=== PATIENT | male | born 1940 | race Caucasian/White ===

== ENCOUNTER 2017-04-08 22:50 | Outpatient (CLI) | payer MEDICARE, OTHER ==
--- NOTE | ~2017-04-08 | HEMODYNAMI ---
PATIENT:NABILA HENDERSON MEDICAL RECORD: [id number] : 36 [id number] ADMISSION DATE: 04/09/17 Generatedon:04/09/201710:21 Patient name: NABILA HENDERSON Patient #: [id number] : 1940 Date of study: 04/09/2017 Page: Of Hemodynamic Procedure Report Patient Data Patient Demographics Procedure consent was obtained First Name: NABILA Gender: Male Last Name: BEATRIZ : 1940 Patient #: [id number] Age: 76 year(s) Race: SSN: [id number] Additional ID: [id number] Contact details Address: [address] State: [place] City: [place] Zip code: [address] Admission Admission Data Admission Date: 04/09/2017 Admission Time: 1:54 Arrival Date: 04/09/2017 Arrival Time: 1:54 Admit Source: Other Insurance Payor: Medicare Room #: D.2109 Lab Results Lab Result Date: 04/09/2017 Lab Result Time: 0:00 Biochemistry Name Units Result Min Max BUN mg/dl 15 --(--*-)-- 7 18 Creatinine mg/dl 0.9 --(-*--)-- 0.6 1.3 CBC Name Units Result Min Max Hemoglobin g/dl 14.5 --(*---)-- 13.5 17.5 Procedure Procedure Types Cath Procedure Diagnostic Procedure LHC [facility] w/Coronaries PCI Procedure Coronary Stent Initial Miscellaneous Procedures Moderate Sedation up to 15 minutes Procedure Description Procedure Date Procedure Date: 04/09/2017 Procedure Start Time: 10:03 Procedure End Time: 10:18 Procedure Staff Name Function Isaac Suarez MD Performing Physician Cami Gallego RT Scrub Rowena Poe RN Nurse Hanane Cano RT Monitor Procedure Data Cath Procedure Fluoroscopy Diagnostic fluoroscopy Total fluoroscopy Time: 3.4 time: 3.4 min min Diagnostic fluoroscopy Total fluoroscopy dose: 712 dose: 712 mGy mGy Contrast Material Contrast Material Type Amount (ml) Isovue 300 80 Entry Location Entry Primary Successful Side Size Upsize Upsize Entry Closure Soria ccessful Closure Location (Fr) 1 (Fr) 2 (Fr) Remarks Device Remarks Radial Right 6 Fr Mechanical TR artery Short Compression Estimated blood loss: 10 ml Diagnostic catheters Device Type Used For End Catheter Placement Diagnostic Terumo 5Fr Procedure [place] 110cm catheter Procedure Complications No complications Procedure Medications Medication Administration Route Dosage Oxygen NC 2 l/min Lidocaine 2% added to field 20 Heparin Flush Bag added to field 2 bags (1000units/500ml NS) 0.9% NaCl I.V. 100 ml/hr Versed I.V. 1 mg Fentanyl I.V. 50 mcg Radial Cocktail I.A. 1 syringe (Verapomil 2mg/Nitro 400mcg/Heparin 1500units) Versed I.V. 1 mg Fentanyl I.V. 50 mcg Heparin Bolus I.V. 4000 units Integrilin (Bolus I.V. 7.3 ml 2mg/ml) Hemodynamics Rest HGB: 14.5 (g/dl) Heart Rate: 52 (bpm) Pressure Samples Time Site Value (mmHg) Purpose Heart Use Rate(bpm) 10:05 LV 9/9,9 Snapshot 58 Snapshots Pre Cath Intra NCS Post Cath Vital Signs Time Heart Resp SPO2 NIBP (mmHg) Rhythm Pain Sedation Rate (ipm) (%) Status Level (bpm) 9:49:07 50 16 98 163/81(140) NSR 0 (11) 10(A) , No pain 9:53:33 51 17 98 162/85(140) NSR 0 (11) 10(A) , No pain 9:57:59 49 17 95 145/83(124) NSR 0 (11) 10(A) , No pain 10:02:19 49 16 97 143/81(118) NSR 0 (11) 10(A) , No pain 10:06:41 57 15 96 111/65(90) NSR 0 (11) 9(A) , No pain 10:10:51 57 16 93 125/70(102) NSR 0 (11) 9(A) , No pain 10:15:09 53 16 96 120/60(95) NSR 0 (11) 10(A) , No pain 10:20:17 53 9 95 126/64(95) NSR 0 (11) 10(A) , No pain Medications Time Medication Route Dose Verified Delivered Reason Note s Effectiveness by by 9:49:24 Oxygen NC 2 l/min Isaac Guaman used for Erick Poe RN procedure 9:49:30 Lidocaine 2% added 20ml Isaac Gray for local to vial Erick Suarez MD anesthetic field 9:49:38 Heparin Flush added 2 bags Isaac Gray used for Bag to Erick Suarez MD procedure (1000units/500ml field NS) 9:49:48 0.9% NaCl I.V. 100 Isaac Guaman Per physician ml/hr Erick Poe RN 10:02:03 Versed I.V. 1 mg Isaac Guaman for sedation Erick Poe RN 10:02:09 Fentanyl I.V. 50 mcg Isaac Guaman for sedation Erick Poe RN 10:04:39 Radial Cocktail I.A. 1 Isaac Gray for (Verapomil syringe Erick Suarez MD vasodilation 2mg/Nitro 400mcg/Heparin 1500units) 10:04:47 Versed I.V. 1 mg Isaac Guaman for sedation Erick Poe RN 10:04:52 Fentanyl I.V. 50 mcg Isaac Guaman for sedation Erick Poe RN 10:09:02 Heparin Bolus I.V. 4000 Isaac Guaman for veri fied units Erick Poe RN anticoagulation with dr suarez 10:10:16 Integrilin I.V. 7.3 ml Isaac Guaman for wast ed (Bolus 2mg/ml) Erick Poe RN antiplatelet 2.7 ml therapy of vial Procedure Log Time Note 9:29:49 Informed consent obtained and on chart 9:29:57 Diagnostic Cath Status : Elective 9:31:05 Rowena Poe RN sent for patient. Start room use. 9:31:05 Time tracking: Regular hours 9:31:11 Plan of Care:Hemodynamics will remain stable., Cardiac rhythm will remain stable., Comfort level will be maintained., Respiratory function will remain adequate., Patient/ family verbilizes understanding of procedure., Procedure tolerated without complication., Recovers from procedure without complications.. 9:32:23 Admit Source: Other 9:32:27 Arrival Date: 04/09/2017 1:54:00 AM 9:32:42 Insurance Payor : Medicare 9:33:19 Lab Result : Hemoglobin 14.5 g/dl 9:33:19 Lab Result : Creatinine 0.9 mg/dl 9:33:19 Lab Result : BUN 15 mg/dl 9:42:01 Patient received from Med II to CCL 2 Alert and oriented. Tansferred to table in Supine position. 9:42:02 Warm blankets applied, and tracee hugger turned on for patient comfort. 9:42:02 Correct patient and procedure confirmed by team. 9:42:03 ECG and BP/O2 sat monitors applied to patient. 9:47:46 Vital chart was started 9:47:47 Baseline sample Acquired. 9:47:52 Full Disclosure recording started 9:47:55 H&P Date Dictated: 04/09/2017 New H&P dictated by physician.. 9:47:57 Pre-procedure instructions explained to patient. 9:47:57 Pre-op teaching completed and patient verbalized understanding. 9:47:58 Family in waiting room. 9:47:59 Patient NPO since Midnight. 9:48:02 Is the patient allergic to Iodine/contrast media? No. 9:48:03 Was the patient premedicated? No 9:48:04 Is patient on blood thinner?Yes 9:48:07 ACC The patient was administered the following blood thiners within the last 24 hours: ACCPlavix 9:48:08 Patient diabetic? No. 9:48:11 Previous problem with sedation/anesthesia? No ? 9:48:12 Snore? Yes 9:48:13 Sleep apnea? Yes 9:48:14 Deviated septum? No 9:48:15 Opens mouth fully? Yes 9:48:15 Sticks out tongue? 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 No ? 9:48:26 Pre procedure: right dorsailis pedis pulse 1+ Palpable, but thready & weak; easily obliterated 9:48:28 Pre procedure: left dorsailis pedis pulse 1+ Palpable, but thready & weak; easily obliterated 9:48:30 Patient pain scale 0/10 ?. 9:48:35 IV patent on arrival in left forearm with 0.9% NaCl at KVO. 9:48:38 Lab results completed and on chart. 9:48:44 Right Radial & Right Groin area was prepped with chlora-prep and draped in sterile fashion 9:48:45 Alarms reviewed by R. N. 9:48:45 Sharps counted by scrub and verified by R.N. 9:49:24 Oxygen 2 l/min NC was administered by Rowena Poe RN; used for procedure; 9:49:30 Lidocaine 2% 20ml vial added to field was administered by Isaac Suarez MD; for local anesthetic; 9:49:38 Heparin Flush Bag (1000units/500ml NS) 2 bags added to field was administered by Isaac Suarez MD; used for procedure; 9:49:48 0.9% NaCl 100 ml/hr I.V. was administered by Rowena Poe RN; Per physician; 9:53:48 Physician arrived 9:53:58 Use device set Radial Dx 9:53:59 Acist Syringe opened to sterile field. 9:54:00 Medline Cath Pack opened to sterile field. 9:54:00 Bag Decanter opened to sterile field. 9:54:00 Terumo 6Fr Slender Glidesheath opened to sterile field. 9:54:01 St Geovani 260cm J .035 wire opened to sterile field. 9:54:01 Acist Hand Control opened to sterile field. 9:54:02 Acist Manifold opened to sterile field. 9:54:02 Tegaderm 4 x 4 opened to sterile field. 9:54:02 MBrace Wrist Support opened to sterile field. 10:00:35 Baseline sample Acquired. 10:00:41 --------ALL STOP TIME OUT------ 10:00:41 Final Timeout: patient, procedure, and site verified with staff and physician. All members of the team are in agreement. 10:00:45 Right Radial & Right Groin site verified by team. 10:00:50 Sedation plan: IV Moderate Sedation Versed, Fentanyl 10:00:54 Physical assessment completed. ASA score P 2 - A patient with mild systemic disease as per Isaac Suarez MD. 10:02:03 Versed 1 mg I.V. was administered by Rowena Poe RN; for sedation; 10:02:05 Zero performed for pressure channel P1 10:02:09 Fentanyl 50 mcg I.V. was administered by Rowena Poe RN; for sedation; 10:02:11 Zero performed for pressure channel P1 10:03:01 Procedure started. 10:03:07 Local anesthetic to right radial artery with Lidocaine 2% by Isaac Suarez MD.INITIAL ACCESS ONLY 10:03:59 A 6 Fr Short sheath was inserted into the Right Radial artery 10:04:38 A Diagnostic ZAO Begunumo 5Fr [place] 110cm catheter was advanced over the wire and used for Procedure. 10:04:39 Radial Cocktail (Verapomil 2mg/Nitro 400mcg/Heparin 1500units) 1 syringe I.A. was administered by Isaac Suarez MD; for vasodilation; 10:04:47 Versed 1 mg I.V. was administered by Rowena Poe RN; for sedation; 10:04:52 Fentanyl 50 mcg I.V. was administered by Rowena Poe RN; for sedation; 10:04:57 LV gram done using FLORES 10:05:37 LCA angiography performed. 10:05:47 EF : 55 % 10:06:42 RCA angiography performed. 10:07:49 Catheter removed. 10:07:51 Proceeding to intervention. 10:08:42 Cordis 6FR XBLAD 3.5 guide catheter opened to sterile field. 10:08:43 Zee Whisper J 300cm 0.014 guide wire opened to sterile field. 10:08:44 Flux BasixCompak Inflation Kit opened to sterile field. 10:08:55 6 Fr xblad 3.5 guide catheter was inserted over the wire 10:09:02 Heparin Bolus 4000 units I.V. was administered by Rowena Poe RN; for anticoagulation; verified with dr suarez 10:10:16 Integrilin (Bolus 2mg/ml) 7.3 ml I.V. was administered by Rowena Poe RN; for antiplatelet therapy; wasted 2.7 ml of vial 10:11:56 whisp wire advanced. 10:12:42 Inflation Number: 1 A Medtronic Integrity 2.5 X 12 stent was prepped and advanced across the Mid LAD. The stent was deployed at 11 JESSICA for 0:10 (min:sec). 10:12:55 Stent catheter was removed intact over wire. 10:14:30 Inflation Number: 1 A Medtronic Integrity 2.5 X 12 stent was prepped and advanced across the Dist LAD. The stent was deployed at 17 JESSICA for 0:00 (min:sec). 10:14:43 Stent catheter was removed intact over wire. 10:14:44 Wire removed. 10:15:49 Guide catheter removed. 10:15:55 Terumo TR Band Standard opened to sterile field. 10:16:46 Sheath removed intact; hemostasis achieved with Mechanical Compression to the Right Radial artery. 10:16:49 Procedure ended.(Physican Out) 10:17:15 Fluoroscopy time 03.40 minutes. 10:17:20 Fluoroscopy dose: 712 mGy 10:17:20 Flurop Dose total: 712 10:17:24 Contrast amount:Isovue 300 80ml. 10:17:26 Sharps counted by scrub and verified by R.N. 10:17:33 TR band inflated with 10cc of air. 10:17:34 Insertion/operative site no bleeding no hematoma. 10:17:49 Estimated blood loss: 10 ml 10:17:53 Post procedure instruction explained to patient.Patient verbalizes understanding. 10:18:06 Procedure type changed to Cath procedure, Diagnostic procedure, LHC, LHC w/Coronaries, PCI procedure, Coronary Stent Initial, Miscellaneous Procedures, Moderate Sedation up to 15 minutes 10:18:07 Procedure and supply charges have been captured, reviewed, submitted and are correct. 10:18:37 Procedure Complication : No complications 10:18:39 Vital chart was stopped 10:18:40 See physician's report for complete and final results. 10:18:47 Report given to [facility]. 10:18:50 Patient transfered to [facility] with Bed. 10:18:53 Procedure ended. 10:18:53 Full Disclosure recording stopped 10:18:58 End room use (Document Last) Intervention Summary Intervention Notes Time ActionType Lesion and Equipment Action# Pressure Duration Attributes Used 10:12:42 Place stent Mid LAD Medtronic 1 11 00:10 Integrity 2.5 X 12 stent 10:14:30 Place stent Dist LAD Medtronic 1 17 00:00 Integrity 2.5 X 12 stent Device Usage Item Name Manufacture Quantity Catalog Hospital Part Current Minimal Lot# / Number Charge Number Stock Stock Serial# Code Acist Acist 1 01995 145395 493132 [id number] 20 AddMyBest Inc Medline Cardinal 1 [id number] 914297 81223 304319 5 Cath Pack Health Bag Microtek 1 2002 [id number] 22461 664710 5 Code On Network Coding Medical Inc. Terumo 6Fr Terumo 1 [id number] 459794 373630 201597 [address] St Geovani 1 327131 780987 047404 256892 30 260cm J .035 wire Acist Hand Acist 1 98772 705758 615906 086060 5 Control Medical Systems Inc Acist Acist 1 22587 292804 211359 803088 5 Manifold Medical Systems Inc Tegaderm 4 3M 1 1626W 130751 639112 433292 5 x 4 MBrace Advanced 1 140-0250-00 541218 76465 758865 5 Wrist Vascular Support Dynamics Diagnostic Terumo 1 89-8618 402874 872188 755044 5 Terumo 5Fr [place] 110cm catheter Cordis 6FR Cardinal 1 [id number] 465834 568519 836333 10 XBLAD 3.5 Health guide catheter Zee Zee 1 [id number] 067296 206521 577685 5 Whisper J Vascular 300cm 0.014 guide wire Merit Merit 1 MP6459 907801 843498 226971 15 BasixComnvk Medical Inflation Kit Medtronic Medtronic 2 [id number] 474233 491460 3 [id number] Integrity [id number] 2.5 X 12 stent Terumo TR Terumo 1 [id number] 450795 450389 470989 40 Band Standard Signature Audit [place] Stage Time Signature Unsigned Intra-Procedure 04/09/2017 Hanane Cano 10:21:06 AM RT(R) Signatures Monitor : Hanane Cano Signature : RT Date : Time : [facility] [address] [place] [address]
[2017-04-08 23:32] LABS: BASOPHILS 0.2 % (0-2); EOSINOPHILS 0.7 % (0-7); HEMATOCRIT 44.2 % (42.0-54.0); HEMOGLOBIN 15.3 g/dL (13.5-17.5); IMMATURE GRANULOCYTES 0.2 % (0-5); LYMPHOCYTES 11.2 % (15-50); MCH 32.4 pg (26.0-34.0); MCHC 34.6 g/dL (31.0-37.0); MCV 93.6 fL (80.0-100.0); MEAN PLATELET VOLUME 9.6 fL (7.4-10.4); NEUTROPHILS 80.7 % (40-80); PLATELET COUNT 214 10x3/uL (130-400); RBC 4.72 10x6/uL (4.20-6.10); RDW 12.8 % (11.5-14.5); WBC 11.1 10x3/uL (4.8-10.8)
[2017-04-08 23:47] LABS: APTT 31.6 SECONDS (22.8-39.4); INR 0.97 (0.85-1.17); PROTIME 12.8 SECONDS (11.6-15.0)
[2017-04-09 00:13] LABS: ALBUMIN 3.4 g/dL (3.4-5.0); BILIRUBIN - TOTAL 0.46 mg/dL (0.2-1.3); CALCIUM 8.3 mg/dL (8.5-10.1); CARBON DIOXIDE 31.5 mmol/L (21.0-32.0); CKMB 1.7 U/L (0.0-3.6); CREATININE - SERUM 1.2 mg/dL (0.6-1.3)
[2017-04-09 00:15] LABS: ANION GAP 11.4 mmol/L (8-16); POTASSIUM - SERUM 2.9 mmol/L (3.5-5.1)
[2017-04-09 00:16] LABS: TROPONIN-I 0.145 ng/mL (0.000-0.060)
[2017-04-09 01:12] LABS: APPEARANCE CLEAR (CLEAR); BACTERIA NONE SEEN /hpf (NONE SEEN); BILIRUBIN NEGATIVE (NEGATIVE); COLOR YELLOW (YELLOW); EPITHELIAL CELLS NSEEN /hpf (0-5); GLUCOSE NEGATIVE (NEGATIVE); KETONE SMALL mg/dL (NEGATIVE); NITRITE NEGATIVE (NEGATIVE); PROTEIN 1+ mg/dL (NEGATIVE); UROBILINOGEN NORMAL (NORMAL); WHITE CELLS - URINE NSEEN /hpf (0-5)
--- NOTE | 2017-04-09 03:09 | NUR ---
RECEIVED REPORT FROM NIKA PALMA IN ED
[2017-04-09] MEDS ORDERED: METOPROLOL TART50 MG PO (03:40)
[2017-04-09] MEDS ORDERED: HYDROCHLOROTHIA25 MG PO (03:41)
[2017-04-09] MEDS ORDERED: PRINIVIL20 MG PO (03:41)
[2017-04-09] MEDS ORDERED: BAYER CHEWABLE81 MG PO (03:41)
[2017-04-09] MEDS ORDERED: NORVASC10 MG PO (03:41)
[2017-04-09] MEDS ORDERED: ADVAIR 250/501 DISK INH (03:42)
[2017-04-09] MEDS ORDERED: ZYLOPRIM100 MG PO (03:42)
[2017-04-09 03:43] VITALS: BP 162/76; BMI 24.4
--- NOTE | 2017-04-09 05:43 | NUR ---
PT RECEIVED TO ROOM AWAKE, ALERT, ORIENTED, WITH FAMILY AT SIDE. PT STATES HE IS STILL HAVING MILD CHEST PAIN, BUT THE MORPHINE DOES HELP. 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 HIS FAMILY MEMBER, GRAND-DAUGHTER, IS A GOOD HEALTH HISTORIAN FOR PT. PT HAS BEEN RESTING COMFORTABLY, REMAINS NPO ORDERED, AND DENIES ANY NEEDS. I HAVE DISCUSSED WITH PT AND HIS FAMILY MEMBER THAT HE MOST LIKELY WILL GO FOR A CARDIAC CATH TODAY, AND EXPLAINED THE PROCEDURE TO THEM BOTH. NO QUESTIONS AT THIS TIME. CONTINUE TO MONITOR CLOSELY.
[2017-04-09 07:15] LABS: BASOPHILS 0.2 % (0-2); EOSINOPHILS 0.8 % (0-7); HEMATOCRIT 41.3 % (42.0-54.0); HEMOGLOBIN 14.5 g/dL (13.5-17.5); IMMATURE GRANULOCYTES 0.1 % (0-5); LYMPHOCYTES 18.6 % (15-50); MCH 32.6 pg (26.0-34.0); MCHC 35.1 g/dL (31.0-37.0); MCV 92.8 fL (80.0-100.0); MONOCYTES 9.9 % (2-11); NEUTROPHILS 70.4 % (40-80); PLATELET COUNT 229 10x3/uL (130-400); RBC 4.45 10x6/uL (4.20-6.10); RDW 12.7 % (11.5-14.5)
[2017-04-09 07:16] LABS: WBC 8.3 10x3/uL (4.8-10.8)
--- NOTE | 2017-04-09 07:20 | NUR ---
AM ROUNDING DONE. PT IS SLEEPING WITH GRANDDAUGHTER SLEEPING IN CHAIR AT THE BEDSIDE. PT HAS D5NS WITH 20 MEQ K+ @ 125CC/HR. CALL RECEIVED FROM LAB REGARDING CRITICAL LAB VALUE, TROPONIN 11. DR. MARTE PAGED TO NOTIFY OF RESULTS. NO NEW ORDERS GIVEN. DR. MARTE COVERED LAST NIGHT, BUT DR. MALLOY IS COVERING FOR TODAY. PER DR. MARTE, SOMEONE WILL BE COMING TO THE FLOOR TO SEE HIM IN ABOUT 30 MINUTES. CHECKED ON PT AGAIN, VSS, PT DENIES CP, NO COMPLAINTS. PT IS REQUESTING TO BE DISCHARGED. I EXPLAINED THAT HE WILL BE GOING TO THE PRINCIPAL NETWORK ENGINEER TODAY, SO HE CAN'T BE D/C'D YET. PT AND GRANDDAUGHTER UNDERSTAND AND ARE IN AGREEMENT WITH PLAN FOR CATH TODAY. WILL CONT TO MONITOR.
[2017-04-09 07:22] LABS: CALC OSMOLALITY 279 mosm/kg (275-300); CALCIUM 8.1 mg/dL (8.5-10.1); CARBON DIOXIDE 29.2 mmol/L (21.0-32.0); CHLORIDE - SERUM 103 mmol/L (98-107); CREATININE - SERUM 0.9 mg/dL (0.6-1.3); GLUCOSE 103 mg/dL (74-106); MAGNESIUM - SERUM 1.8 mg/dL (1.8-2.4); PHOSPHOROUS 2.7 mg/dL (2.5-4.9); POTASSIUM - SERUM 3.2 mmol/L (3.5-5.1); SODIUM 140 mmol/L (136-145); UREA NITROGEN 15 mg/dL (7-18); eGFR NON AFRICAN AMERICAN 87 mL/min (90-120)
--- NOTE | 2017-04-09 08:10 | NUR ---
DR. MALLOY'S BEAMER HAND MARLYN ON THE FLOOR, NOTIFIED ABOUT ELEVATED TROPONIN. PLAN IS TO TAKE PT TO THE ENVIRONMENTAL SCIENCE PROFESSOR TODAY. WILL CONT TO MONITOR.
[2017-04-09 08:22] VITALS: BP 161/73
--- NOTE | 2017-04-09 08:45 | NUR ---
PT PRE-OP'D FOR HOUSEKEEPING ASSOCIATE. ALL PREOP MEDS GIVEN. PT SIGNED CONSENT AND PLACED IN CHART. IVF NS RUNNING AT [facility], IV KCL RIDER RUNNING. PT CONTINUES TO DENY CP, SOB, NAUSEA, OR DIZZINESS. FAMILY PRESENT AT THE BEDSIDE, AWAITING PROCEDURE.
--- NOTE | 2017-04-09 10:30 | NUR ---
PT RECEIVED BACK FROM THE PRODUCT MARKETING EXECUTIVE. PER REPORT, PT UNDERWENT A LEFT HEART CATH VIA RIGHT RADIAL ARTERY. HE RECEIVED 2 STENT TO LAD WITH PLANS TO RETURN IN 1 WEEK FOR ANOTHER STENT. HE CONTINUES TO BE SINUS LIA ON THE MONITOR. IN PRODUCT MARKETING EXECUTIVE, HE RECEIVED 4000U OF HEPARIN, 14.5 INTEGRILLIN BOLUS, 100MCG FENTANYL, 2 VERSED. PT IS STABLE WITH BAND TO RIGHT WRIST, INTACT. RADIAL PULSE PALPABLE, STRONG. VSS. WILL DO FREQ VS PER ORDER. PT REQUESTING SANDWICH TRARY PRIOR TO LUNCH, WILL ORDER. DISCUSSED AND REINFORCED AHA CARDIAC DIET. PT VERBALIZED UNDERSTANDING. WILL CONT TO MONITOR.
[2017-04-09 10:33] VITALS: BMI 24.4
[2017-04-09] MEDS ORDERED: PLAVIX75 MG PO (11:16)
[2017-04-09] MEDS ORDERED: PRAVACHOL20 MG PO (12:20)
--- NOTE | 2017-04-09 15:30 | NUR ---
D/C NOTE: DISCHARGE PAPERWORK REVIEWED WITH PATIENT AND TWO DAUGHTERS AT THE BEDSIDE. D/C INSTRUCTIONS AND D/C MED LIST REVIEWED. PT GIVEN STENT CARD AND TWO NEW SCRIPTS. PT INSTRUCTED THAT HE CAN REMOVE DSG TOMORROW AFTER 24 HOURS. NO SHOWER FOR 24 HRS. NO TUB BATHS OR SWIMMING FOR 2 WKS. NO HEAVY LIFTING FOR AT LEAST 4 DAYS. NO LIFTING OVER 10 POUNDS. EDUCATED AGAIN ON CARDIAC DIET. SALINE LOC REMOVED, TELE MONITOR TAKEN OFF. PT TAKEN TO FRONT LOBBY VIA W/C. DTR TO DRIVE PT HOME.
--- NOTE | 2017-04-09 16:47 | OP ---
PATIENT NAME: NABILA HENDERSON MEDICAL RECORD: [id number] :36 LOCATION:D.M2 D.2109 ADMISSION DATE:04/09/17 SURGEON: CELESTE MALLOY MD DATE OF OPERATION: 04/09/2017 PROCEDURES: 1. PTCA stent to LAD. 2. Left heart catheterization. 3. Selective coronary angiography. 4. Left ventriculogram. INDICATION: Non-Q-wave myocardial infarction. PROCEDURE IN DETAIL: After informed consent was obtained and after detailed explanation of risk, benefits as well as alternative therapies, the patient elected to proceed with angiogram and angioplasty. The right radial area was prepped and draped in a normal sterile fashion. The right radial artery was cannulated via modified Seldinger technique with placement of 6-Taiwanese sheath. All catheters exchanged through this sheath. FINDINGS: The left ventriculogram was performed in standard 30-degree FLORES view, reveals good cardiac wall motion throughout all segments. Overall ejection fraction estimated at 60%. SELECTIVE CORONARY ANGIOGRAPHY: 1. Left main showed no significant angiographic disease. 2. Left anterior descending has 2 areas of 80% to 85% stenosis in the mid vessel. 3. Left circumflex has an area of 70% to 80% stenosis in the mid vessel. 4. Right coronary is very large, dominant with only qytb-vc-cssdally irregularities, but no flow-limiting stenosis. PTCA STENT OF THE LAD: The stent used was a 2.5 x 12 mm Integrity times 2. The result was 0% residual stenosis. OVERALL IMPRESSION: Successful percutaneous transluminal coronary angioplasty stent of the left anterior descending going from 85% initial stenosis times 2 to 0% residual stenosis. TRANSINT:[id number] Voice Confirmation ID: [id number] DOCUMENT ID: [id number] CELESTE MALLOY MD at 1647 CC: [id number] DICTATION DATE: 04/09/17 1026 GREASER AND OILER: 04/09/17 1256 ADM IN [place] [id number] [place] [address]
--- NOTE | 2017-04-09 16:48 | DS ---
PATIENT:NABILA PIERSON :36 MEDICAL RECORD: [id number] DISCHARGE SUMMARY ADMISSION DATE: 04/09/17 DISCHARGE DATE: DATE OF DISCHARGE: 04/09/2017 DIAGNOSES: 1. Non-Q-wave myocardial infarction. 2. PTCA stent to LAD this admission. 3. Coronary artery disease. 4. Hypertension. 5. Hyperlipidemia. HOSPITAL COURSE: Mr. Pierson presented with non-Q-wave myocardial infarction, found to have 2-vessel coronary artery disease of the left circumflex and LAD. The LAD was critical and felt to be the infarct-related vessel. He underwent PTCA stent of the LAD, had an uneventful postop course. Discharged home with the addition of Pravachol to his medical regimen as he is already on calcium channel duane, DENIZ inhibitor, and Lopressor. We will follow up within the next week for PTCA stent of the left circumflex as an outpatient. TRANSINT:[id number] Voice Confirmation ID: [id number] DOCUMENT ID: [id number] CELESTE MALLOY MD at 1648 CC: [id number] DICTATION DATE: 04/09/17 1027 SALES REPRESENTATIVE PRINTING PAPER: 04/09/17 1448 ADM IN [facility] [address] [place] [address]
== END 2017-04-09 16:48 | disposition home or self-care (01) ==
LOC: D.OPS 22:50
PROVIDERS: Emergency Medicine; Family Medicine
DX: I21.4 Non-ST elevation (NSTEMI) myocardial infarction (principal); I25.10 Atherosclerotic heart disease of native coronary artery without angina pectoris; I10 Essential (primary) hypertension; E78.5 Hyperlipidemia, unspecified; J44.9 Chronic obstructive pulmonary disease, unspecified; Z87.891 Personal history of nicotine dependence; E87.6 Hypokalemia

== ENCOUNTER 2017-04-16 08:48 | Outpatient (CLI) | payer MEDICARE, OTHER ==
--- NOTE | ~2017-04-16 | HEMODYNAMI ---
PATIENT:NABILA HENDERSON MEDICAL RECORD: [id number] : 36 LOCATION:DRENNY ADMISSION DATE: 04/16/17 Generatedon:04/16/201711:14 Patient name: NABILA HENDERSON Patient #: [id number] : 1940 Date of study: 04/16/2017 Page: Of Hemodynamic Procedure Report Patient Data Patient Demographics Procedure consent was obtained First Name: NABILA Gender: Male Last Name: BEATRIZ : 1940 Middle Initial: S Age: 76 year(s) Patient #: [id number] Race: SSN: [id number] Additional ID: [id number] Contact details Address: [address] State: [place] City: [place] Zip code: [address] Admission Admission Data Admission Date: 04/16/2017 Admission Time: 8:48 Weight (lbs.): 180.78 Weight (kg.): 82 Lab Results Lab Result Date: 04/16/2017 Lab Result Time: 0:00 Biochemistry Name Units Result Min Max BUN mg/dl 27 --(----)-* 7 18 Creatinine mg/dl 1.4 --(----)*- 0.6 1.3 CBC Name Units Result Min Max Hemoglobin g/dl 15 --(-*--)-- 13.5 17.5 Procedure Procedure Types Cath Procedure Diagnostic Procedure FFR/IVUS Intra-Coronary IVUS Initial Intra-Coronary IVUS Additional PCI Procedure Coronary Stent Initial Miscellaneous Procedures Moderate Sedation up to 30 minutes Procedure Description Procedure Date Procedure Date: 04/16/2017 Procedure Start Time: 10:53 Procedure End Time: 11:12 Procedure Staff Name Function Isaac Suarez MD Performing Physician Shadi Reyes RN Nurse Lyndon Mo RT Monitor Francy Villalta RT Scrub Procedure Data Cath Procedure Fluoroscopy Diagnostic fluoroscopy Total fluoroscopy Time: 7.1 time: 7.1 min min Diagnostic fluoroscopy Total fluoroscopy dose: 569 dose: 569 mGy mGy Contrast Material Contrast Material Type Amount (ml) Isovue 300 88 Entry Location Entry Primary Successful Side Size Upsize Upsize Entry Closure Soria ccessful Closure Location (Fr) 1 (Fr) 2 (Fr) Remarks Device Remarks Radial Right 6 Fr Mechanical artery Short Compression Estimated blood loss: 10 ml Procedure Complications No complications Procedure Medications Medication Administration Route Dosage Oxygen NC 2 l/min Heparin Flush Bag added to field 2 bags (1000units/500ml NS) 0.9% NaCl I.V. 100 ml/hr Radial Cocktail added to field 1 syringe (Verapomil 2mg/Nitro 400mcg/Heparin 1500units) Fentanyl I.V. 50 mcg Versed I.V. 1 mg Fentanyl I.V. 50 mcg Versed I.V. 1 mg Fentanyl I.V. 50 mcg Radial Cocktail I.A. 1 syringe (Verapomil 2mg/Nitro 400mcg/Heparin 1500units) Fentanyl I.V. 50 mcg Heparin Bolus I.V. 4000 units Hemodynamics Rest HGB: 15 (g/dl) Heart Rate: 52 (bpm) Pressure Samples Time Site Value (mmHg) Purpose Heart Use Rate(bpm) 11:04 AO 101/52(71) Snapshot 52 Snapshots Pre Cath Intra NCS Post Cath Vital Signs Time Heart Resp SPO2 etCO2 EM3abfa NIBP (mmHg) Rhythm Pain Sedation Rate (ipm) (%) (mmHg) (mmHg) Status Level (bpm) 10:03:56 52 17 98 0 0 142/74(121) NSR 0 (11) 10(A) , No pain 10:09:12 52 17 98 0 0 136/68(113) NSR 0 (11) 10(A) , No pain 10:13:54 54 17 100 0 0 126/69(105) NSR 0 (11) 10(A) , No pain 10:18:35 54 17 95 0 0 122/67(101) NSR 0 (11) 10(A) , No pain 10:23:54 54 18 97 0 0 123/67(102) NSR 0 (11) 10(A) , No pain 10:28:33 53 18 96 0 0 118/66(102) NSR 0 (11) 10(A) , No pain 10:33:11 52 18 95 0 0 126/63(94) NSR 0 (11) 10(A) , No pain 10:38:19 52 18 96 0 0 122/64(93) NSR 0 (11) 10(A) , No pain 10:43:26 52 17 97 0 0 121/65(96) NSR 0 (11) 9(A) , No pain 10:48:40 51 19 100 0 0 110/63(91) NSR 0 (11) 9(A) , No pain 10:53:18 49 18 95 0 0 119/66(97) NSR 0 (11) 9(A) , No pain 10:57:58 54 19 93 0 0 102/60(86) NSR 0 (11) 9(A) , No pain 11:02:35 52 17 94 0 0 109/60(87) NSR 0 (11) 9(A) , No pain 11:07:14 51 18 98 0 0 115/61(88) NSR 0 (11) 9(A) , No pain 11:10:26 55 17 95 0 0 123/67(102) NSR 0 (11) 9(A) , No pain Medications Time Medication Route Dose Verified Delivered Reason Note s Effectiveness by by 10:09:59 Oxygen NC 2 l/min Isaac Hsu Per physician Erick Reyes RN 10:10:10 Heparin Flush added 2 bags Isaac Ashtony used for Bag to Erick Reyes bracelet maker novelty (1000units/500ml field NS) 10:10:19 0.9% NaCl I.V. 100 Isaac Shadi Per physician ml/hr Erick Reyes RN 10:10:29 Radial Cocktail added 1 Isaac Shadi used for (Verapomil to syringe Erick Reyes RN procedure 2mg/Nitro field 400mcg/Heparin 1500units) 10:35:57 Fentanyl I.V. 50 mcg Isaac Shaid for sedation Erick Reyes RN 10:36:05 Versed I.V. 1 mg Isaac Shadi for sedation Erick Reyes RN 10:40:15 Versed I.V. 1 mg Isaac Shadi for sedation Erick Reyes RN 10:40:20 Fentanyl I.V. 50 mcg Isaac Shadi for sedation Erick Reyes RN 10:51:26 Fentanyl I.V. 50 mcg Isaac Shadi for sedation Erick Reyes RN 10:53:56 Radial Cocktail I.A. 1 Isaac Gray for (Verapomil syringe Erick Suarez MD vasodilation 2mg/Nitro 400mcg/Heparin 1500units) 10:54:06 Fentanyl I.V. 50 mcg Isaac Hsu for sedation Erick Reyes RN 10:55:45 Heparin Bolus I.V. 4000 Isaac Hsu for units Erick Reyes RN anticoagulation Procedure Log Time Note 9:40:43 Lyndon Mo RT(R) sent for patient. Start room use. 9:40:44 Time tracking: Regular hours 9:40:48 Plan of Care:Hemodynamics will remain stable., Cardiac rhythm will remain stable., Comfort level will be maintained., Respiratory function will remain adequate., Patient/ family verbilizes understanding of procedure., Procedure tolerated without complication., Recovers from procedure without complications.. 9:54:26 Patient received from Pre/Post Procedure Room to CCL 1 Alert and oriented. Tansferred to table in Supine position. 9:54:27 Warm blankets applied, and tracee hugger turned on for patient comfort. 9:54:27 Correct patient and procedure confirmed by team. 9:54:30 Signed procedure consent form obtained from patient. 9:54:31 ECG and BP/O2 sat monitors applied to patient. 10:03:00 Vital chart was started 10:05:58 Baseline sample Acquired. 10:06:02 Rhythm: sinus bradycardia 10:06:03 Full Disclosure recording started 10:06:08 H&P Date Dictated: 04/16/2017 New H&P dictated by physician.. 10:06:09 Pre-procedure instructions explained to patient. 10:06:09 Pre-op teaching completed and patient verbalized understanding. 10:06:12 Family in waiting room. 10:06:13 Patient NPO since Midnight. 10:06:14 Is the patient allergic to Iodine/contrast media? No. 10:06:15 Is patient on blood thinner?Yes 10:06:18 ACC The patient was administered the following blood thiners within the last 24 hours: ACCPlavix 10:06:20 Patient diabetic? No. 10:06:22 Previous problem with sedation/anesthesia? No ? 10:06:23 Snore? Yes 10:06:24 Sleep apnea? Yes 10:06:25 Deviated septum? No 10:06:26 Opens mouth fully? Yes 10:06:27 Sticks out tongue? Yes 10:06:30 Airway obstruction? Yes COPD 10:06:34 Dentures? Yes OUT 10:06:38 Pre procedure: right dorsailis pedis pulse 1+ Palpable, but thready & weak; easily obliterated 10:06:40 Modified Keagan's test Ulnar < 7 seconds 10:06:43 Patient pain scale 0/10 ?. 10:06:48 IV patent on arrival in left forearm with 0.9% NaCl at [facility]. 10:06:51 Lab results completed and on chart. 10:06:56 Right Radial & Right Groin area was prepped with chlora-prep and draped in sterile fashion 10:06:57 Alarms reviewed by R. N. 10:06:57 Sharps counted by scrub and verified by R.N. 10:07:01 Use device set Radial PCI 10:07:03 Tegaderm 4 x 4 opened to sterile field. 10:07:04 Acist Manifold opened to sterile field. 10:07:05 Acist Syringe opened to sterile field. 10:07:06 Acist Hand Control opened to sterile field. 10:07:06 Bag Decanter opened to sterile field. 10:07:06 Medline Cath Pack opened to sterile field. 10:07:07 Merit BasixCompak Inflation Kit opened to sterile field. 10:07:07 Terumo 6Fr Slender Glidesheath opened to sterile field. 10:07:07 MBrace Wrist Support opened to sterile field. 10:07:08 St Geovani 260cm J .035 wire opened to sterile field. 10:09:59 Oxygen 2 l/min NC was administered by Shadi Reyes RN; Per physician; 10:10:10 Heparin Flush Bag (1000units/500ml NS) 2 bags added to field was administered by Shadi Reyes RN; used for procedure; 10:10:19 0.9% NaCl 100 ml/hr I.V. was administered by Shadi Reyes RN; Per physician; 10:10:29 Radial Cocktail (Verapomil 2mg/Nitro 400mcg/Heparin 1500units) 1 syringe added to field was administered by Shadi Reyes RN; used for procedure; 10:14:39 Zee Whisper J 300cm 0.014 guide wire opened to sterile field. 10:16:54 Patient Weight : 180.78 lbs 10:: Lab Result : BUN 27 mg/dl :: Lab Result : Creatinine 1.4 mg/dl 10:: Lab Result : Hemoglobin 15 g/dl 10:: Hemodynamic formulas in Rest were re-calculated based on hemoglobin value from 04/16/2017 12:00:00 AM 10:34:42 --------ALL STOP TIME OUT------ 10:34:43 Final Timeout: patient, procedure, and site verified with staff and physician. All members of the team are in agreement. 10:34:47 Right groin site verified by team. 10:35:57 Fentanyl 50 mcg I.V. was administered by Shadi Reyes RN; for sedation; 10:36:05 Versed 1 mg I.V. was administered by Shadi Reyes RN; for sedation; 10:36:56 Physical assessment completed. ASA score P 2 - A patient with mild systemic disease as per Isaac Suarez MD. 10:37:00 Sedation plan: IV Moderate Sedation Versed, Fentanyl 10:40:15 Versed 1 mg I.V. was administered by Shadi Reyes RN; for sedation; 10:40:20 Fentanyl 50 mcg I.V. was administered by Shadi Reyes RN; for sedation; 10:51:26 Fentanyl 50 mcg I.V. was administered by Shadi Ryees RN; for sedation; 10:52:41 Cordis 6FR XBLAD 4.0 guide catheter opened to sterile field. 10:53:28 Procedure started. 10:53:33 Local anesthetic to right radial artery with Lidocaine 2% by Isaac Suarez MD.INITIAL ACCESS ONLY 10:53:56 Radial Cocktail (Verapomil 2mg/Nitro 400mcg/Heparin 1500units) 1 syringe I.A. was administered by Isaac Suarez MD; for vasodilation; 10:54:06 Fentanyl 50 mcg I.V. was administered by Shadi Reyes RN; for sedation; 10:54:09 A 6 Fr Short sheath was inserted into the Right Radial artery 10:54:45 6 Fr XBLAD 4 guide catheter was inserted over the wire 10:55:35 Whisper wire advanced. 10:55:38 Chemult [place] IVUS Catheter opened to sterile field. 10:55:45 Heparin Bolus 4000 units I.V. was administered by Shadi Reyes RN; for anticoagulation; 10:56:42 Wire advanced across lesion. 10:57:08 IVUS catheter advanced over wire. 10:57:43 IVUS pass to Circ lesion performed. 10:58:33 Wire redirected to OM. 10:58:44 IVUS pass to OM lesion performed. 10:59:16 IVUS catheter removed over wire. 11:01:26 Wire redirected to DIAG. 11:03:08 Wire damaged, New Whisper wire advanced. 11:03:17 Zee Whisper J 300cm 0.014 guide wire opened to sterile field. 11:08:06 Inflation Number: 1 A Kent OTW 2.5 x 08 stent was prepped and advanced across the 1st Diag. The stent was deployed at 11 JESSICA for 0:10 (min:sec). 11:08:10 Stent catheter was removed intact over wire. 11:08:10 Wire removed. 11:08:11 Guide catheter removed. 11:08:18 Terumo TR Band Standard opened to sterile field. 11:08:34 Sheath removed intact; hemostasis achieved with Mechanical Compression to the Right Radial artery. 11:08:37 Procedure ended.(Physican Out) 11:09:54 Fluoroscopy time 07.10 minutes. 11:09:58 Flurop Dose total: 569 11:09:58 Fluoroscopy dose: 569 mGy 11:10:04 Contrast amount:Isovue 300 88ml. 11:10:06 Sharps counted by scrub and verified by R.N. 11:10:08 TR band inflated with 12cc of air. 11:10:10 Insertion/operative site no bleeding no hematoma. 11:10:11 Post Procedure Pulses reassessed and unchanged 11:10:14 Post-procedure physical assessment completed. ASA score P 2 - A patient with mild systemic disease as per Isaac Suarez MD. 11:10:17 Post procedure rhythm: unchanged. 11:10:20 Estimated blood loss: 10 ml 11:10:21 Post procedure instruction explained to patient.Patient verbalizes understanding. 11:10:22 Patient needs reinforcement of post procedure teaching. 11:10:39 Procedure type changed to Cath procedure, Diagnostic procedure, FFR/IVUS, Intra-Coronary IVUS Initial, Intra-Coronary IVUS Additional, PCI procedure, Coronary Stent Initial, Miscellaneous Procedures, Moderate Sedation up to 30 minutes 11:10:43 Procedure Complication : No complications 11:12:22 Procedure and supply charges have been captured, reviewed, submitted and are correct. 11:12:24 Vital chart was stopped 11:12:24 See physician's report for complete and final results. 11:12:27 Report given to Pre/Post Procedure Room. 11:12:31 Patient transfered to Pre/Post Procedure Room with Stretcher. 11:12:33 Procedure ended. 11:12:33 Full Disclosure recording stopped 11:12:39 End room use (Document Last) Intervention Summary Intervention Notes Time ActionType Lesion and Equipment Action# Pressure Duration Attributes Used 11:08:06 Place stent 1st Diag Kent OTW 1 11 00:10 2.5 x 08 stent Device Usage Item Name Manufacture Quantity Catalog Hospital Part Current Minimal Lot# / Number Charge Number Stock Stock Serial# Code Tegaderm 4 3M 1 [id number] [id number] 535676 5 x 4 Acist Acist 1 76458 370916 597797 202949 5 Manifold Medical Systems Inc Acist Acist 1 75224 083527 918041 414726 20 Syringe Medical Systems Inc Acist Hand Acist 1 59726 905903 195380 764661 5 Control Medical Systems Inc Bag Microtek 1 2002S 571595 70091 759107 5 DecYouSticker Medical Inc. Medline Cardinal 1 [id number] 190324 39518 256442 5 Ikonisys [facility] Merit 1 [id number] 446297 479171 765676 15 BasixBluebridge Digital Medical Inflation Kit Terumo 6Fr Terumo 1 [id number] 943030 733576 439565 40 Slender Glidesheath MBrace Advanced 1 140-0250-00 980795 31245 608049 5 [address] Support Dynamics [address] Ge[address] St Geovani 1 985084 855724 900884 337329 30 260cm J .035 wire Zee Zee 2 [id number] 291122 080163 328457 5 Whisper J Vascular 300cm 0.014 guide wire Chemult Chemult 1 [id number] 751614 920240 774717 8 [place] IVUS Catheter Kent OTW Medtronic 1 [id number] 375928 94410 128558 5 [id number] 2.5 x 08 stent Terumo TR Terumo 1 [id number] 808180 617086 162935 40 Band Standard Cordis 6FR Cardinal 1 [id number] 704215 220884 060910 3 XBLAD 4.0 Health guide catheter Signature Audit [place] Stage Time Signature Unsigned Intra-Procedure 04/16/2017 Lyndon Mo 11:14:32 AM RT(R) Signatures Monitor : Lyndon Mo RT Signature : Date : Time : [address] [place] [address]
[~2017-04-16 08:48] MED LIST: ADVAIR 250/501 DISK INH; BAYER CHEWABLE81 MG PO; HYDROCHLOROTHIA25 MG PO; METOPROLOL TART50 MG PO; NORVASC10 MG PO; PLAVIX75 MG PO; PRAVACHOL20 MG PO; PRINIVIL20 MG PO; ZYLOPRIM100 MG PO
[2017-04-16 09:12] VITALS: BP 148/78; BMI 23.9
[2017-04-16 09:17] LABS: BASOPHILS 0.1 % (0-2); EOSINOPHILS 0 % (0-7); HEMATOCRIT 42.5 % (42.0-54.0); IMMATURE GRANULOCYTES 0.3 % (0-5); LYMPHOCYTES 6.3 % (15-50); MCH 33.1 pg (26.0-34.0); MCHC 35.3 g/dL (31.0-37.0); MCV 93.8 fL (80.0-100.0); MEAN PLATELET VOLUME 10.3 fL (7.4-10.4); MONOCYTES 5.1 % (2-11); NEUTROPHILS 88.2 % (40-80); PLATELET COUNT 284 10x3/uL (130-400); RBC 4.53 10x6/uL (4.20-6.10); RDW 13.2 % (11.5-14.5); WBC 13.9 10x3/uL (4.8-10.8)
[2017-04-16 09:46] LABS: ANION GAP 10.8 mmol/L (8-16); CALCIUM 8.6 mg/dL (8.5-10.1); CARBON DIOXIDE 31.1 mmol/L (21.0-32.0); CREATININE - SERUM 1.4 mg/dL (0.6-1.3); POTASSIUM - SERUM 3.9 mmol/L (3.5-5.1)
--- NOTE | 2017-04-16 11:42 | NUR ---
1140 SITTING UP IN BED, TALKING WITH FAMILY. ROOM AIR. NSB, RATE 54 WNO C/O CHEST PAIN. PULSES PALP X 4. R WRIST TR BAND C/D/I W NO HEMATOMA OR BLEEDING.
--- NOTE | 2017-04-16 12:15 | NUR ---
1215 VSS WITH CHEST PAIN DENIED. TR BAND TO R/WRIST CDI NO BLEEDING NO HEMATOMA NOTED. INSTRUCTED PATIENT TO KEEP RUE STRAIGHT NO BENDING OR FLEXING OF WRIST. FAMILY AT BEDSIDE
--- NOTE | 2017-04-16 13:09 | HP ---
PATIENT: NABILA HENDERSON MEDICAL RECORD: [id number] ACCOUNT: [id number] LOCATION:[facility] : 36 ADMISSION DATE: 04/16/17 HISTORY AND PHYSICAL EXAMINATION DATE OF SERVICE: 04/16/2017 ADMITTING DIAGNOSES: 1. Angina. 2. Recent non-Q-wave myocardial infarction with PTCA and stent to LAD. 3. Coronary artery disease. HISTORY OF PRESENT ILLNESS: This is a gentleman, who recently presented with a non-Q-wave myocardial infarction, found to have 2-vessel disease of the LAD and circumflex. Underwent successful PTCA and stent of the LAD as this was the culprit vessel for the infarct. He was continuing to have angina and brought back for PTCA and stent of the left circumflex. PHYSICAL EXAMINATION: GENERAL APPEARANCE: Well-nourished, well-developed, appears stated age. Level of distress, comfortable. PSYCHIATRIC: Mental status, alert, normal affect. Orientation, oriented to time, place and person. EYES: Lids and conjunctiva, noninjected. No discharge, no pallor. ENT: Lips, teeth, gums, normal dentition. Oropharynx, no cyanosis, no pallor. NECK: Carotid arteries, bilateral normal upstroke, no bruits, no thrills. JUGULAR VEINS: No jugular venous pressure or distention. CERVICAL LYMPH NODES: Nontender, nonenlarged. THYROID: Not enlarged. Nontender. No nodules. LUNGS: Respiratory effort, unlabored. CHEST: Normal curvature. No thoracic deformity. No chest wall tenderness. Percussion, resonant. Auscultation, clear. No wheezes, no rales, no rhonchi. CARDIOVASCULAR: Precordial exam, nondisplaced. No heaves or pericardial thrills. Rate and rhythm, regular. Heart sounds, normal S1, normal S2. No S3, no gallop, no rub. Systolic murmur, not heard. Diastolic murmur, not heard. EXTREMITIES: No cyanosis, no edema. Peripheral pulses, full and equal in all extremities, except as noted. No bruits appreciated. ABDOMEN: Soft, nondistended. Normal aorta. No bruit. Nontender. No masses. Liver, nontender, no hepatomegaly. Spleen, nontender, no splenomegaly. MUSCULOSKELETAL: No joint tenderness. No joint swelling. No erythema. NEUROLOGICAL: Normal gait, normal strength, normal tone. SKIN: Warm and dry. REVIEW OF SYSTEMS: The patient reports easy bruising but reports no swollen glands. The patient reports no fever, no night sweats, no significant weight gain, no significant weight loss. No significant exercise tolerance. The patient reports no dry eyes, no irritation, no vision change. Patient reports no difficulty hearing and no ear pain. Patient reports no frequent nose bleeds or nose and sinus problems. Patient reports on arm pain on exertion. No shortness of breath while lying down. No history of heart murmur. Patient reports no cough, no wheezing or coughing up blood. Patient reports no abdominal pain, no vomiting. Normal appetite. No diarrhea and not vomiting blood. No nausea and no constipation. Patient reports no incontinence. No difficulty urinating. No hematuria. No increased frequency. Patient reports no muscle aches. No weakness, no arthralgias, no back pain. No swelling of the HISTORY AND PHYSICAL [id number] BEATRIZNABILA S extremities. Patient reports no abnormal mole, no jaundice, no rashes. Reports no loss of consciousness. No weakness and no numbness. No seizures, dizziness, or headaches. The patient reports no depression, no sleep disturbance, feeling safe in a relationship and no alcohol abuse. Patient reports on fatigue. Reports no runny nose or sinus pressure. No itching, no hives, and no frequent sneezing. OVERALL IMPRESSION: Anginal symptomatology with disease of the circumflex. We will proceed with PTCA and stent of the left circumflex. TRANSINT:[id number] Voice Confirmation ID: [id number] DOCUMENT ID: [id number] CELESTE MALLOY MD at 1309 CC: [id number] DICTATION DATE: 04/16/17927 ENVIRONMENTAL ENGINEERING AIDE: 04/16/17941 [facility] [address] [place] [address]
--- NOTE | 2017-04-16 13:09 | OP ---
PATIENT NAME: NABILA HENDERSON MEDICAL RECORD: [id number] :36 LOCATION:D.CAT ADMISSION DATE: SURGEON: CELESTE MALLOY MD DATE OF OPERATION: 04/16/2017 PROCEDURES: 1. PTCA stent LAD diagonal. 2. Selective coronary angiography. 3. Intravascular ultrasound of left circumflex and first obtuse marginal. PROCEDURE IN DETAIL: After informed consent was obtained and after a detailed explanation of the risks, benefits as well as alternative therapies, the patient elected to proceed with angiogram and angioplasty. The right radial area was prepped and draped in normal sterile fashion. The right radial artery was cannulated via modified Seldinger technique with placement of 6-Portuguese sheath. All catheters exchanged through this sheath. FINDINGS: The left circumflex and first obtuse marginal, underwent intravascular ultrasound revealing no significant disease. No disease, greater than 30% and the LAD diagonal was 90% to 95% stenosis. This is the reason for the ongoing chest pain. This is addressed with a 2.5 x 8 mm Onxy stent. Result was 0% residual stenosis. OVERALL IMPRESSION: Successful percutaneous transluminal coronary angioplasty stent of the left anterior descending diagonal going from 90% to 95% initial stenosis to 0% residual stenosis. TRANSINT:[id number] Voice Confirmation ID: [id number] DOCUMENT ID: [id number] CELESTE MALLOY MD at 1309 CC: [id number] DICTATION DATE: 04/16/17 1110 HOUSING QUALITY STANDARD INSPECTOR: 04/16/17 [id number] [place] [address]
--- NOTE | 2017-04-16 14:18 | NUR ---
1315 RESTING WITH EYES CLOSED. R WRIST TR BAND C/D/I W NO HEMATOMA OR BLEEDING. ALL VITALS WNL. FAMILY AT SIDE.
--- NOTE | 2017-04-16 14:19 | NUR ---
1410 AMBULATED TO BATHROOM TO VOID. BACK TO BED. ALL VITALS. WNL.
--- NOTE | 2017-04-16 14:39 | NUR ---
2CC AIR REMOVED FROM R WRIST TR BAND. PIV REMOVED FROM LEFT WRIST WITH BANDAID APPLIED. WILL MONITOR R WRIST TR BAND.
--- NOTE | 2017-04-16 15:15 | NUR ---
R WRIST TR BAND WEANED, REMOVED. TEGADERM AND 2X2 APPLIED. D/C INSTRUCTIONS DISCUSSED WITH PATIENT AND FAMILY AT SIDE. WHEELED OUT VIA WHEELCHAIR.
== END 2017-04-16 15:18 | disposition home or self-care (01) ==
LOC: D.CATH 08:48
PROVIDERS: Internal Medicine Interventional Cardiology
DX: I25.119 Atherosclerotic heart disease of native coronary artery with unspecified angina pectoris (principal); Z01.812 Encounter for preprocedural laboratory examination
CPT/HCPCS: 92978; 92979; C9600

== ENCOUNTER 2017-11-01 00:18 | Emergency (ER) | payer MEDICARE, OTHER | END 2017-11-01 01:50 | disposition home or self-care (01) | LOC: D.ER 00:18 | DX: R06.00 Dyspnea, unspecified (principal); J20.9 Acute bronchitis, unspecified; J44.9 Chronic obstructive pulmonary disease, unspecified ==

== ENCOUNTER 2017-12-06 10:48 | Inpatient (IN) | payer MEDICARE, OTHER ==
[~2017-12-06] VITALS: Ht 185.4 cm; Wt 79.6 kg
[2017-12-06] VITALS (18 sets, daily range): BP systolic 105–135; BP diastolic 54–81; BMI 23.4
--- NOTE | ~2017-12-06 | EC ---
PATIENT:NABILA HENDERSON DATE OF SERVICE: 12/06/17 SEX: M MEDICAL RECORD: [id number] DATE OF : 36 LOCATION:D.M2 D.212 AGE OF PATIENT: 76 ADMISSION DATE: 12/06/17 REFERRING PHYSICIAN: INTERPRETING PHYSICIAN: JESUS SCHULTZ MD ECHOCARDIOGRAM REPORT ECHO CHARGES 4 ECHO COMPLETE Date: 12/07 CLINICAL DIAGNOSIS: JOSE MARIA [place] HX OF CAD ECHOCARDIOGRAPHIC MEASUREMENTS (adult normal given) AC root (d.<3.7cm) 3.3 cm LV Septum d (<1.2 cm> 1.4 cm Valve Excursion 1.7 cm LV Septum (systole) 1.5 cm Left Atria (s.<4.0cm> 2.7 cm LVPW d(<1.2cm) 1.7 cm RV (d.<2.3cm) 4.1 cm LVPW (sytole) 1.8 cm LV diastole(<5.6CM) 4.3 cm MV E-F(>70mm/sec) cm LV systole 3.1 cm LVOT Diameter 1.7 cm MV exc.(>10mm) 1.4 cm Est.ejection fraction (50-75%) % DOPPLER: LVIT cm/sec A 90.0 cm/sec E 49.0 cm/sec LA cm/sec RVSP 32 mmHg LVOT 114 cm/sec AOP1/2T m/s Asc. Ao 121 cm/sec RVOT cm/sec RA cm/sec PA cm/sec AV Gradient Peak 5.82 mmHg AV Mean 2.69 mmHg AV Area 2.6 cm MV Gradient Peak 4.02 mmHg MV Mean 1.28 mmHg MV Area cm COMMENTS: Electric Serviceman: Madhu DUNN Cardiology Technologist: Vicky Schultz TAPE# PACS Pericardial Effusion N DATE OF SERVICE: PROCEDURE: Transthoracic echocardiogram. FINDINGS: 1. Left ventricle is not well visualized. There seems to be a preserved basilar function. There is anterior apical distal septal dyskinesis, inferior apical dyskinesis. Overall, ejection fraction is 25% to 30%. 2. The right ventricle is mildly dilated. 3. The right atrium is normal size, normal function. ECHOCARDIOGRAM REPORT [id number] NABILA HENDERSON 4. The left atrium is normal size, normal function. 5. The aortic valve is normal. 6. The mitral valve is normal. 7. The tricuspid valve is normal. 8. The pericardium is normal. 9. Pulmonic valve is normal. CONCLUSIONS: The patient has evidence of regional wall motion abnormalities. Ejection fraction is markedly reduced at 25% to 30% with anterior apical dyskinesis. TRANSINT:[id number] Voice Confirmation ID: [id number] DOCUMENT ID: [id number] JESUS SCHULTZ MD at 1029 CC: [id number] DICTATION DATE: 12/08/17 0816 NAVAL AIRCREWMAN TACTICAL HELICOPTER: 12/08/17 1049 DIS IN 12/09/17 [address] [place] [address]
--- NOTE | ~2017-12-06 | EC ---
PATIENT:NABILA HENDERSON DATE OF SERVICE: 12/06/17 SEX: M MEDICAL RECORD: [id number] DATE OF : 36 LOCATION:D.M2 D.212 AGE OF PATIENT: 76 ADMISSION DATE: 12/06/17 REFERRING PHYSICIAN: INTERPRETING PHYSICIAN: JESUS SCHULTZ MD ECHOCARDIOGRAM REPORT ECHO CHARGES 7 ECHO w/CONTRAST Date: 12/08 CLINICAL DIAGNOSIS: JOSE MARIA [place] HX OF CAD ECHOCARDIOGRAPHIC MEASUREMENTS (adult normal given) AC root (d.<3.7cm) 0 cm LV Septum d (<1.2 cm> 0 cm Valve Excursion 0 cm LV Septum (systole) 0 cm Left Atria (s.<4.0cm> 0 cm LVPW d(<1.2cm) 0 cm RV (d.<2.3cm) 0 cm LVPW (sytole) 0 cm LV diastole(<5.6CM) 0 cm MV E-F(>70mm/sec) 0 cm LV systole 0 cm LVOT Diameter 0 cm MV exc.(>10mm) 0 cm Est.ejection fraction (50-75%) 0 % DOPPLER: LVIT 0 cm/sec A 0 cm/sec E 0 cm/sec LA 0 cm/sec RVSP 0 mmHg LVOT 0 cm/sec AOP1/2T 0 m/s Asc. Ao 0 cm/sec RVOT 0 cm/sec RA 0 cm/sec PA 0 cm/sec AV Gradient Peak 0 mmHg AV Mean 0 mmHg AV Area 0 cm MV Gradient Peak 0 mmHg MV Mean 0 mmHg MV Area 0 cm COMMENTS: LIMITED ECHO WITH CONTRAST Mortuary Beautician: Christine MACOE Logistics Center Manager: 4 Dr. Schultz TAPE# PACS Pericardial Effusion N DATE OF SERVICE: This is a limited echocardiogram with contrast to assess function and possibility of apical thrombus. FINDINGS: Anterior septal region of the heart shows to be akinetic. There is dyskinesis in the anterior apical and inferior apical wall spaces with the overall ejection fraction of 30% to 35%. The basilar segments are preserved to mildly hyperdynamic. ECHOCARDIOGRAM REPORT [id number] NABILA HENDERSON TRANSINT:[id number] Voice Confirmation ID: [id number] DOCUMENT ID: [id number] JESUS SCHULTZ MD at 0295 CC: [id number] DICTATION DATE: 12/09/17 0737 POSTAL SUPERINTENDENT: 12/09/17 0917 DIS IN 12/09/17 [facility] [address] [id number]
--- NOTE | ~2017-12-06 | HEMODYNAMI ---
PATIENT:NABILA HENDERSON MEDICAL RECORD: [id number] : 36 LOCATION:[facility] ADMISSION DATE: 12/06/17 Generatedon:12/06/201712:59 Patient name: NABILA HENDERSON Patient #: [id number] : 1940 Date of study: 12/06/2017 Page: Of Hemodynamic Procedure Report Patient Data Patient Demographics Procedure consent was obtained First Name: NABILA Gender: Male Last Name: BEATRIZ : 1940 Middle Initial: S Age: 76 year(s) Patient #: [id number] Race: SSN: [id number] Additional ID: [id number] Contact details Address: [address] State: [place] City: [place] Zip code: [address] Admission Admission Data Admission Date: 12/06/2017 Admission Time: 10:48 Procedure Procedure Types Cath Procedure Diagnostic Procedure LHC LHC w/Coronaries Sedation Charges Moderate Sedation up to 30 minutes PCI Procedure AMI/SVG/CIRCUS TRAIN SUPERVISOR PTCA or Stent AMI-BMS/SYDNEY Initial PTCA PTCA Additional Procedure Description Procedure Date Procedure Date: 12/06/2017 Procedure Start Time: 12:09 Procedure End Time: 12:56 Procedure Staff Name Function Taye Winston MD Performing Physician Cami Gallego RT Monitor Toro Morris RT Scrub Shadi Reyes RN Nurse Procedure Data Cath Procedure Fluoroscopy Diagnostic fluoroscopy Total fluoroscopy Time: time: 11.8 min 11.8 min Diagnostic fluoroscopy Total fluoroscopy dose: dose: 1355 mGy 1355 mGy Contrast Material Contrast Material Type Amount (ml) Isovue 300 129 Entry Location Entry Primary Successful Side Size Upsize Upsize Entry Closure Succes sful Closure Location (Fr) 1 (Fr) 2 (Fr) Remarks Device Remarks Femoral Right 6 Fr Exoseal artery Short Estimated blood loss: 5 ml Diagnostic catheters Device Type Used For End Catheter Placement DIAGNOSTIC 3DRC 5Fr Right Coronary catheter ([id number]) Angiography DIAGNOSTIC Pigtail 5Fr LV Angiography catheter ([id number]) Procedure Complications No complications Procedure Medications Medication Administration Route Dosage Oxygen etCO2 Nasal cannula 2 l/min Heparin Flush Bag added to field 2 bags (1000units/500ml NS) 0.9% NaCl I.V. 100 ml/hr Fentanyl I.V. 50 mcg Versed I.V. 1 mg Heparin Bolus I.V. 3000 units Integrilin (Bolus I.V. 7.3 ml 2mg/ml) Fentanyl I.V. 50 mcg Versed I.V. 1 mg Heparin Bolus I.V. 2000 units Integrilin Drip I.V. drip 13.3 ml/hr (75mg/100ml) Nitroglycerin IC/IA I.C. 100 mcg Integrilin (Bolus wasted 2.7 ml 2mg/ml) Hemodynamics Rest Heart Rate: 55 (bpm) Pressure Samples Time Site Value (mmHg) Purpose Heart Use Rate(bpm) 12:50 LV 124/12,28 EDP 52 Gradients Valve Time Site Site Mean SEP/DFP Peak To Heart Use 1 2 (mmHg) (sec/min) Peak Rate (mmHg) (bpm) Aortic 12:51 LV AO 55 Snapshots Pre Cath Intra NCS Post Cath Vital Signs Time Heart Resp SPO2 etCO2 NIBP (mmHg) Rhythm Pain Sedation Rate (ipm) (%) (mmHg) Status Level (bpm) 12:02:42 54 17 96 26.1 145/78(110) NSR 0 (11) 10(A) , No pain 12:07:57 49 17 100 34.3 162/101(118) NSR 0 (11) 10(A) , No pain 12:12:32 75 17 100 32.1 120/86(107) NSR 0 (11) 10(A) , No pain 12:17:14 61 16 100 36.6 132/82(103) NSR 0 (11) 10(A) , No pain 12:21:55 66 16 100 26.9 106/72(98) NSR 0 (11) 10(A) , No pain 12:27:06 51 17 100 30.6 131/76(104) NSR 0 (11) 10(A) , No pain 12:31:49 62 16 100 32.9 139/85(103) NSR 0 (11) 10(A) , No pain 12:36:33 60 16 100 33.6 141/83(108) NSR 0 (11) 10(A) , No pain 12:41:18 60 16 100 36.5 140/82(117) NSR 0 (11) 10(A) , No pain 12:46:03 50 16 100 36.5 125/72(98) NSR 0 (11) 10(A) , No pain 12:51:16 55 17 100 33.6 124/71(92) NSR 0 (11) 10(A) , No pain 12:55:59 58 16 100 29.8 117/74(109) NSR 0 (11) 10(A) , No pain Medications Time Medication Route Dose Verified Delivered Reason Notes Effectiveness by by 12:03:10 Oxygen etCO2 2 Taye Shadi Per physician Nasal l/min Tish Reyes RN cannula 12:03:18 Heparin Flush added 2 Taye Shadi used for Bag to bags Tish Reyes RN procedure (1000units/500ml field NS) 12:03:27 0.9% NaCl I.V. 100 Taye Shadi Per physician ml/hr Tish Reyes RN, MD 12:05:24 Fentanyl I.V. 50 Taye Shadi for sedation mcg Tish Reyes RN, MD 12:05:31 Versed I.V. 1 mg Taye Shadi for sedation Tish Reyes RN, MD 12:11:22 Heparin Bolus I.V. 3000 Taye Shadi for units Tish Reyes RN anticoagulation 12:11:34 Integrilin I.V. 7.3 Taye Shadi for (Bolus 2mg/ml) ml Tish Reyes RN antiplatelet MD therapy 12:12:12 Fentanyl I.V. 50 Taye Shadi for sedation mcg Tish Reyes RN, MD 12:12:16 Versed I.V. 1 mg Taye Shadi for sedation Tish Reyes RN, MD 12:19:09 Heparin Bolus I.V. 2000 Taye Shadi for units Tish Reyes RN anticoagulation 12:22:05 Integrilin Drip I.V. 13.3 Taye Shadi for (75mg/100ml) drip ml/hr Tish Reyes RN antiplatelet MD therapy 12:41:37 Nitroglycerin I.C. 100 Taye Taye for IC/IA mcg Tish Winston MD vasodilation 12:50:25 Integrilin wasted 2.7 Taye Taye for (Bolus 2mg/ml) ml Tish Winston MD antiplatelet MD therapy Procedure Log Time Note 11:40:14 Shadi Reyes RN sent for patient. Start room use. 11:54:51 Diagnostic Cath Status : Emergency 11:55:15 Time tracking: Regular hours (M-F 7:00 - 5:00) 11:55:20 Plan of Care:Hemodynamics will remain stable., Cardiac rhythm will remain stable., Comfort level will be maintained., Respiratory function will remain adequate., Patient/ family verbilizes understanding of procedure., Procedure tolerated without complication., Recovers from procedure without complications.. 11:55:28 Patient received from ED to CCL 1 Alert and oriented. Tansferred to table in Supine position. 12:00:24 Warm blankets applied, and tracee hugger turned on for patient comfort. 12:00:25 Correct patient and procedure confirmed by team. 12:00:26 Signed procedure consent form obtained from patient. 12:01:49 Vital chart was started 12:03:08 ECG and BP/O2 sat monitors applied to patient. 12:03:09 Baseline sample Acquired. 12:03:10 Oxygen 2 l/min etCO2 Nasal cannula was administered by Shadi Reyes RN; Per physician; 12:03:17 Rhythm: sinus rhythm 12:03:18 Heparin Flush Bag (1000units/500ml NS) 2 bags added to field was administered by Shadi Reyes RN; used for procedure; 12:03:19 Full Disclosure recording started 12:03:22 H&P Date Dictated: 12/06/2017 New H&P dictated by physician.. 12:03:27 0.9% NaCl 100 ml/hr I.V. was administered by Shadi Reyes RN; Per physician; 12:04:12 Pre-procedure instructions explained to patient. 12:04:12 Pre-op teaching completed and patient verbalized understanding. 12:04:14 Family in waiting room. 12:04:16 Patient NPO since Midnight. 12:04:18 Is the patient allergic to Iodine/contrast media? No. 12:04:19 Was the patient premedicated? No 12:04:25 Is patient on blood thinner?Yes 12:04:27 ACC The patient was administered the following blood thiners within the last 24 hours: ACCPlavix 12:04:30 Patient diabetic? No. 12:04:32 Previous problem with sedation/anesthesia? No ? 12:04:34 Snore? Yes 12:04:36 Sleep apnea? Yes 12:04:37 Deviated septum? No 12:04:38 Opens mouth fully? Yes 12:04:39 Sticks out tongue? Yes 12:04:43 Airway obstruction? Yes copd 12:04:47 Dentures? Yes in tight 12:04:50 Pre procedure: right dorsailis pedis pulse 1+ Palpable, but thready & weak; easily obliterated 12:04:53 Pre procedure: left dorsailis pedis pulse 1+ Palpable, but thready & weak; easily obliterated 12:04:56 Patient pain scale 4/10 ?. 12:05:03 IV patent on arrival in left forearm with 0.9% NaCl at [facility]. 12:05:05 Lab results completed and on chart. 12:05:09 Right groin area was prepped with chlora-prep and draped in sterile fashion 12:05:10 Alarms reviewed by R. N. 12:05:10 Sharps counted by scrub and verified by R.N. 12:05:12 Physician arrived 12:05:12 --------ALL STOP TIME OUT------ 12:05:13 Final Timeout: patient, procedure, and site verified with staff and physician. All members of the team are in agreement. 12:05:14 Right groin site verified by team. 12:05:17 Physical assessment completed. ASA score P 2 - A patient with mild systemic disease as per Taye Winston MD. 12:05:20 Sedation plan: IV Moderate Sedation Medication:Versed, Fentanyl 12:05:24 Fentanyl 50 mcg I.V. was administered by Shadi Reyes RN; for sedation; 12:05:31 Versed 1 mg I.V. was administered by Shadi Reyes RN; for sedation; 12:08:29 Use device set Femoral Dx 12:08:30 ACIST Syringe (36103) opened to sterile field. 12:08:31 Bag Decanter (2002S) opened to sterile field. 12:08:34 Medline Cath Pack ([id number]) opened to sterile field. 12:08:36 DIAGNOSTIC WIRE .035 260cm J wire (755381) opened to sterile field. 12:08:42 ACIST Hand Control (67630) opened to sterile field. 12:08:43 ACIST Manifold (15406) opened to sterile field. 12:08:46 Tegaderm 4 x 4 (1626W) opened to sterile field. 12:09:09 Zero performed for pressure channel P1 12:09:34 Procedure started. 12:09:42 Local anesthetic to right femoral artery with Lidocaine 2% by Taye Winston MD.INITIAL ACCESS ONLY 12::44 MICROPUNCTURE 4FR Cook (S37351) opened to sterile field. 12::46 Access obtained with 4Fr micropunture. 12:10:02 A 6 Fr Short sheath was inserted into the Right Femoral artery 12:10:10 Zero performed for pressure channel P1 12:10:18 Zero performed for pressure channel P1 12:11:22 Heparin Bolus 3000 units I.V. was administered by Shadi Reyes RN; for anticoagulation; 12:11:25 SHEATH 6Fr Prelude ([id number]) opened to sterile field. 12:11:33 COPILOT Valve Control (6537234) opened to sterile field. 12:11:34 Integrilin (Bolus 2mg/ml) 7.3 ml I.V. was administered by Shadi Reyes RN; for antiplatelet therapy; 12:11:59 GUIDE 6FR XBLAD 4.0 catheter ([id number]) opened to sterile field. 12:12:00 6 Fr xblad 4 guide catheter was inserted over the wire 12:12:09 LCA angiography performed. 12:12:11 Injector settings: Ml/sec: 3, Volume: 6, 12:12:12 Fentanyl 50 mcg I.V. was administered by Shadi Reyes RN; for sedation; 12:12:16 Versed 1 mg I.V. was administered by Shadi Reyes RN; for sedation; 12:13:57 BMW 190cm [place] 2 J wire ([id number]) opened to sterile field. 12:15:38 BMW 190cm [place] 2 J wire ([id number]) opened to sterile field. 12:15:39 INFLATOR Merit BasixCompak (AZ4162) opened to sterile field. 12:16:03 bmw wire advanced. 12:16:04 Wire advanced across lesion. 12:16:40 Inflate balloon Inflation number: 1 A EUPHORA 2.0 x 20 Balloon ([id number]) was prepped and advanced across the Prox LAD, then inflated to 10 JESSICA for 0:10 (min:sec). 12:16:46 Inflation number: 2 The EUPHORA 2.0 x 20 Balloon ([id number]) was reinflated across the Prox LAD, to 10 JESSICA for 0:10 (min:sec). 12:16:54 Inflation number: 3 The EUPHORA 2.0 x 20 Balloon ([id number]) was reinflated across the Prox LAD, to 10 JESSICA for 0:10 (min:sec). 12:17:36 Balloon removed over the wire. 12:19:09 Heparin Bolus 2000 units I.V. was administered by Shadi Reyes RN; for anticoagulation; 12:19:19 Inflate balloon Inflation number: 4 A EUPHORA 3.0 x 20 Balloon ([id number]) was prepped and advanced across the Prox LAD, then inflated to 10 JESSICA for 0:10 (min:sec). 12:19:43 Inflation number: 5 The EUPHORA 3.0 x 20 Balloon ([id number]) was reinflated across the Prox LAD, to 14 JESSICA for 0:10 (min:sec). 12:19:57 Inflation number: 6 The EUPHORA 3.0 x 20 Balloon ([id number]) was reinflated across the Prox LAD, to 14 JESSICA for 0:10 (min:sec). 12:21:47 second BMW wire advanced 12:22:05 Integrilin Drip (75mg/100ml) 13.3 ml/hr I.V. drip was administered by Shadi Reyes RN; for antiplatelet therapy; 12:22:10 Wire removed. 12:25:37 Balloon removed over the wire. 12:25:56 Inflate balloon Inflation number: 7 A EUPHORA 3.5 x 15 Balloon ([id number]) was prepped and advanced across the Prox LAD, then inflated to 14 JESSICA for 0:10 (min:sec). 12:28:47 Balloon removed over the wire. 12:30:34 Place stent Inflation Number: 8 A PAT RX 3.0 x 18 stent ([id number]) was prepped and advanced across the Prox LAD. The stent was deployed at 12 JESSICA for 0:10 (min:sec). 12:30:56 Inflation number: 9 The stent balloon was then re-inflated across the Prox LAD to 14 JESSICA for 0:10 (min:sec). 12:31:43 Stent catheter was removed intact over wire. 12:33:17 bmw wire advanced down diagonal 12:35:07 Inflation number: 1 The EUPHORA 2.0 x 20 Balloon ([id number]) was reinflated across the 1st Diag, to 12 JESSICA for 0:10 (min:sec). 12:36:10 wire removed form diag 12:36:19 Balloon removed over the wire. 12:38:47 Place stent Inflation Number: 10 A PAT RX 3.5 x 18 stent ([id number]) was prepped and advanced across the Prox LAD. The stent was deployed at 14 JESSICA for 0:10 (min:sec). 12:39:25 Stent catheter was removed intact over wire. 12:41:37 Nitroglycerin IC/IA 100 mcg I.C. was administered by Taye Winston MD; for vasodilation; 12:44:49 Place stent Inflation Number: 1 A PAT RX 3.0 x 22 stent ([id number]) was prepped and advanced across the Dist LAD. The stent was deployed at 12 JESSICA for 0:10 (min:sec). 12:46:19 Stent catheter was removed intact over wire. 12:46:20 Wire removed. 12:46:20 Guide catheter removed. 12:46:49 Zero performed for pressure channel P1 12:47:26 A DIAGNOSTIC 3DRC 5Fr catheter ([id number]) was advanced over the wire and used for Right Coronary Angiography. 12:48:44 RCA angiography performed. 12:48:47 Injector settings: Ml/sec: 3, Volume: 6, 12:48:56 Catheter removed. 12:49:14 A DIAGNOSTIC Pigtail 5Fr catheter ([id number]) was advanced over the wire and used for LV Angiography. 12:50:25 Integrilin (Bolus 2mg/ml) 2.7 ml wasted was administered by Taye Winston MD; for antiplatelet therapy; 12:50:47 LV hemodynamics recorded. 12:50:49 LV gram done using FLORES 12:50:52 Injector settings: Ml/sec: 12, Volume: 8, 12:51:28 EF : 30 % 12:51:36 Catheter removed. 12:51:47 EXOSEAL 6Fr (EX600) opened to sterile field. 12:52:47 Sheath removed intact; hemostasis achieved with Exoseal to the Right Femoral artery. 12:53:49 Procedure ended.(Physican Out) 12:54:01 Fluoroscopy time 11.80 minutes. 12:54:06 Flurop Dose total: 1355 12:54:06 Fluoroscopy dose: 1355 mGy 12:54:11 Contrast amount:Isovue 300 129ml. 12:54:13 Sharps counted by scrub and verified by R.N. 12:54:14 Insertion/operative site no bleeding no hematoma. 12:54:16 Post-op/insertion site Right Femoral artery dressed using a 4 x 4 and Tegaderm. 12:54:19 Post right femoral artery:stable 12:54:21 Post Procedure Pulses reassessed and unchanged 12:54:30 Post procedure rhythm: unchanged. 12:54:34 Estimated blood loss: 5 ml 12:54:36 Post procedure instruction explained to patient.Patient verbalizes understanding. 12:54:37 Patient needs reinforcement of post procedure teaching. 12:55:40 Procedure type changed to Cath procedure, Diagnostic procedure, LHC, LHC w/Coronaries, Sedation Charges, Moderate Sedation up to 30 minutes, PCI procedure, AMI/SVG/CIRCUS TRAIN SUPERVISOR PTCA or Stent, AMI-BMS/SYDNEY Initial, PTCA, PTCA Additional 12:55:42 Procedure and supply charges have been captured, reviewed, submitted and are correct. 12:55:46 Procedure Complication : No complications 12:55:49 Vital chart was stopped 12:55:49 See physician's report for complete and final results. 12:55:54 Report given to CVICU. 12:55:57 Patient transfered to CVICU with Stretcher. 12:55:59 Procedure ended. 12:55:59 Full Disclosure recording stopped 12:56:08 ACC-PCI Only Patient was given prescriptions, or instructed by Taye Winston MD to start/continue the following medications upon discharge: Plavix 12:56:11 End room use (Document Last) Intervention Summary Intervention Notes Time ActionType Lesion and Equipment Used Action# Pressure Duration Attributes 12:16:40 Inflate Prox LAD EUPHORA 2.0 x 1 10 00:10 balloon 20 Balloon ([id number]) 12:16:46 Reinflate Prox LAD EUPHORA 2.0 x 2 10 00:10 balloon 20 Balloon ([id number]) 12:16:54 Reinflate Prox LAD EUPHORA 2.0 x 3 10 00:10 balloon 20 Balloon ([id number]) 12:19:19 Inflate Prox LAD EUPHORA 3.0 x 4 10 00:10 balloon 20 Balloon ([id number]) 12:19:43 Reinflate Prox LAD EUPHORA 3.0 x 5 14 00:10 balloon 20 Balloon ([id number]) 12:19:57 Reinflate Prox LAD EUPHORA 3.0 x 6 14 00:10 balloon 20 Balloon ([id number]) 12:25:56 Inflate Prox LAD EUPHORA 3.5 x 7 14 00:10 balloon 15 Balloon ([id number]) 12:30:34 Place stent Prox LAD PAT RX 3.0 x 8 12 00:10 18 stent ([id number]) 12:30:56 Reinflate Prox LAD PAT RX 3.0 x 9 14 00:10 stent 18 stent balloon ([id number]) 12:35:07 Reinflate 1st Diag EUPHORA 2.0 x 1 12 00:10 balloon 20 Balloon ([id number]) 12:38:47 Place stent Prox LAD PAT RX 3.5 x 10 14 00:10 18 stent ([id number]) 12:44:49 Place stent Dist LAD PAT RX 3.0 x 1 12 00:10 22 stent ([id number]) Device Usage Item Name Manufacture Quantity Catalog Hospital Part Current [facility] Lot# / Number Charge Number Stock Stock Serial# Code ACIST Syringe Acist 1 10336 201880 463951 582760 20 (28396) Medical Systems Inc Bag Decanter Microtek 1 612090 31819 858759 5 () Medical Inc. Medline Cath Cardinal 1 [id number] 597498 42432 036513 5 [facility] ([id number]) DIAGNOSTIC St Geovani 1 320430 138361 367780 994083 30 WIRE .035 260cm J wire (302649) ACIST Hand Acist 1 71211 235551 822570 610410 5 Control Medical (03412) Systems Inc ACIST Manifold Acist 1 50029 661785 814658 551206 5 (69663) Medical Systems Inc Tegaderm 4 x 4 3M 1 1626W 045550 558199 382553 5 (1626W) MICROPUNCTURE Cook Medical 1 M71611 907853 336749 935894 5 4FR Cook ([id number]) SHEATH 6Fr Merit 1 [id number] 180683 482950 986455 5 Prelude Medical ([id number]) COPILOT Valve Zee 1 8822018 484331 934564 930030 5 Control Vascular (5382953) GUIDE 6FR Cardinal 1 99258379 374693 116003 386570 3 XBLAD 4.0 Health catheter ([id number]) BMW 190cm Zee 2 [id number] 520419 43295 904936 5 [place] 2 J Vascular wire (2222659F) INFLATOR Merit Merit 1 YU4706 765992 717118 042746 15 FluidigmsdFilecubed Medical (QD7338) EUPHORA 2.0 x Medtronic 1 [id number] 999451 940601 007858 5 [id number] 20 Balloon ([id number]) EUPHORA 3.0 x Medtronic 1 [id number] 009747 151648 293605 5 [id number] 20 Balloon ([id number]) EUPHORA 3.5 x Medtronic 1 [id number] 812942 134223 795794 5 [id number] 15 Balloon ([id number]) PAT RX 3.0 x Medtronic 1 [id number] 492058 8808895 307272 5 [id number] 18 stent ([id number]) PAT RX 3.5 x Medtronic 1 [id number] 569576 6557815 253521 5 [id number] 18 stent ([id number]) PAT RX 3.0 x Medtronic 1 [id number] 117478 3601906 873682 5 [id number] 22 stent ([id number]) DIAGNOSTIC Cardinal 1 [id number] 016460 243017 327188 9 3DRC 5Fr Health catheter (160601V) DIAGNOSTIC Cardinal 1 183385W 546708 291012 199260 5 Pigtail 5Fr Health catheter (303551V) EXOSEAL 6Fr Cardinal 1 EX600 167957 993701 712301 10 (EX600) Health Signature Audit [place] Stage Time Signature Unsigned Intra-Procedure 12/06/2017 Cami Gallego 12:59:55 PM RT(R) Signatures Monitor : Cami Gallego RT Signature : Date : Time : [id number] [place] [address]
[2017-12-06 11:09] LABS: BASOPHILS 0.1 % (0-2); EOSINOPHILS 0.9 % (0-7); HEMATOCRIT 45.6 % (42.0-54.0); HEMOGLOBIN 16.1 g/dL (13.5-17.5); IMMATURE GRANULOCYTES 0.3 % (0-5); LYMPHOCYTES 17.3 % (15-50); MCH 32.9 pg (26.0-34.0); MCHC 35.3 g/dL (31.0-37.0); MCV 93.3 fL (80.0-100.0); MONOCYTES 7.6 % (2-11); NEUTROPHILS 73.8 % (40-80); RBC 4.89 10x6/uL (4.20-6.10); RDW 13.2 % (11.5-14.5); WBC 10.2 10x3/uL (4.8-10.8)
[2017-12-06 11:20] LABS: PLATELET COUNT 178 10x3/uL (130-400)
[2017-12-06 11:22] LABS: ALBUMIN 3.7 g/dL (3.4-5.0); ALKALINE PHOSPHATASE 79 U/L (46-116); ALT (SGPT) 24 U/L (10-68); BILIRUBIN - TOTAL 0.72 mg/dL (0.2-1.3); CALC OSMOLALITY 294 mosm/kg (275-300); CALCIUM 9.2 mg/dL (8.5-10.1); CARBON DIOXIDE 32.6 mmol/L (21.0-32.0); CHLORIDE - SERUM 101 mmol/L (98-107); CREATININE - SERUM 1.4 mg/dL (0.6-1.3); GLUCOSE 127 mg/dL (74-106); PROTEIN - SERUM 7.7 g/dL (6.4-8.2); SODIUM 144 mmol/L (136-145); UREA NITROGEN 30 mg/dL (7-18); eGFR NON AFRICAN AMERICAN 52 mL/min (90-120)
[2017-12-06 11:45] LABS: CHOL - HDL RATIO 3.4 ratio (2.3-4.9); CHOLESTEROL, TOTAL 188 mg/dL (0-200); CKMB 2.1 U/L (0.0-3.6); CREATINE KINASE 166 UL (21-232); HDL CHOLESTEROL 56 mg/dL (32-96); LDL CHOLESTEROL 116 mg/dL (0-100); LDL-HDL RATIO 2.1 ratio (1.5-3.5); TRIGLYCERIDE 83 mg/dL (30-200)
[2017-12-06 11:49] LABS: TROPONIN-I 0.123 ng/mL (0.000-0.060)
[2017-12-06 12:24] LABS: APPEARANCE CLEAR (CLEAR); COLOR YELLOW (YELLOW)
[2017-12-06 12:26] LABS: BACTERIA FEW /hpf (NONE SEEN); BILIRUBIN NEGATIVE (NEGATIVE); EPITHELIAL CELLS OCC /hpf (0-5); GLUCOSE NEGATIVE (NEGATIVE); KETONE NEGATIVE (NEGATIVE); NITRITE NEGATIVE (NEGATIVE); PROTEIN 1+ mg/dL (NEGATIVE); SPECIFIC GRAVITY 1.005 (1.005-1.020); UROBILINOGEN NORMAL (NORMAL); WHITE CELLS - URINE OCC /hpf (0-5)
[2017-12-06 16:28] LABS: BASOPHILS 0.1 % (0-2); EOSINOPHILS 0.3 % (0-7); HEMOGLOBIN 15.1 g/dL (13.5-17.5); IMMATURE GRANULOCYTES 0.3 % (0-5); LYMPHOCYTES 10.6 % (15-50); MCHC 35.1 g/dL (31.0-37.0); MCV 94.1 fL (80.0-100.0); MONOCYTES 7.1 % (2-11); NEUTROPHILS 81.6 % (40-80); PLATELET COUNT 188 10x3/uL (130-400); RBC 4.57 10x6/uL (4.20-6.10); RDW 13.2 % (11.5-14.5)
[2017-12-06 16:32] LABS: WBC 13.5 10x3/uL (4.8-10.8)
[2017-12-06 20:49] LABS: CKMB 820.6 U/L (0.0-3.6)
[2017-12-07] VITALS (17 sets, daily range): BP systolic 98–128; BP diastolic 58–76; Ht 185.4 cm; Wt 79.6 kg
[2017-12-07 02:59] LABS: BASOPHILS 0.1 % (0-2); EOSINOPHILS 0.2 % (0-7); HEMATOCRIT 36.1 % (42.0-54.0); HEMOGLOBIN 12.7 g/dL (13.5-17.5); IMMATURE GRANULOCYTES 0.2 % (0-5); LYMPHOCYTES 9.1 % (15-50); MCHC 35.2 g/dL (31.0-37.0); MCV 93.8 fL (80.0-100.0); MEAN PLATELET VOLUME 9.9 fL (7.4-10.4); MONOCYTES 9.2 % (2-11); NEUTROPHILS 81.2 % (40-80); PLATELET COUNT 184 10x3/uL (130-400); RBC 3.85 10x6/uL (4.20-6.10); RDW 13.4 % (11.5-14.5); WBC 10.6 10x3/uL (4.8-10.8)
[2017-12-07 03:31] LABS: CALC OSMOLALITY 294 mosm/kg (275-300); CARBON DIOXIDE 29.4 mmol/L (21.0-32.0); CHLORIDE - SERUM 105 mmol/L (98-107); CREATININE - SERUM 1.4 mg/dL (0.6-1.3); GLUCOSE 126 mg/dL (74-106); SODIUM 144 mmol/L (136-145); UREA NITROGEN 28 mg/dL (7-18); eGFR NON AFRICAN AMERICAN 52 mL/min (90-120)
[2017-12-07 03:39] LABS: CKMB 374.5 U/L (0.0-3.6); POTASSIUM - SERUM 3.1 mmol/L (3.5-5.1)
[2017-12-08 04:00] VITALS: BP 102/51
[2017-12-08 05:43] VITALS: BP 106/53
[2017-12-08 07:44] VITALS: BP 105/57
[2017-12-08 11:23] VITALS: BP 113/61
[2017-12-08 15:46] VITALS: BP 101/62
[2017-12-08 19:43] VITALS: BP 119/59
[2017-12-09 00:51] VITALS: BP 97/48
[2017-12-09 05:17] VITALS: BP 97/50
[2017-12-09 07:00] VITALS: BP 114/71
[2017-12-09] MEDS ORDERED: COREG 3.1253.125 MG PO (08:39)
[2017-12-09] MEDS ORDERED: LIPITOR20 MG PO (08:39)
[2017-12-09] MEDS ORDERED: ASPIRIN325 MG PO (08:40)
[2017-12-09 13:03] VITALS: BP 123/57
[2017-12-09 16:56] VITALS: BP 108/60
== END 2017-12-09 17:44 | disposition home health service (06) | DRG 247 ==
LOC: D.CATH 10:48 → D.ER 10:48 → EDSTATUS 11:29 → D.CVICU 13:07 → D.CATH 13:08 → D.CVICU 13:08 → D.M2 12-07 17:59
PROVIDERS: Emergency Medicine; Internal Medicine Cardiovascular Disease
PROC: B2111ZZ Fluoroscopy of Multiple Coronary Arteries using Low Osmolar Contrast (ICD-10-PCS; 2017-12-06)
PROC: B2151ZZ Fluoroscopy of Left Heart using Low Osmolar Contrast (ICD-10-PCS; 2017-12-06)
PROC: 027036Z Dilation of Coronary Artery, One Artery with Three Drug-eluting Intraluminal Devices, Percutaneous Approach (ICD-10-PCS; principal; 2017-12-06 12:00)
PROC: 4A023N7 Measurement of Cardiac Sampling and Pressure, Left Heart, Percutaneous Approach (ICD-10-PCS; 2017-12-06 12:00)
DX: I21.3 ST elevation (STEMI) myocardial infarction of unspecified site (principal); I25.10 Atherosclerotic heart disease of native coronary artery without angina pectoris; Z95.5 Presence of coronary angioplasty implant and graft; I25.5 Ischemic cardiomyopathy; I10 Essential (primary) hypertension; J44.9 Chronic obstructive pulmonary disease, unspecified; R00.1 Bradycardia, unspecified

== ENCOUNTER → 2017-12-24 12:57 | Outpatient (CLI) | payer MEDICARE, OTHER ==
[~2017-12-24 12:57] MED LIST changes: +ASPIRIN325 MG PO; +COREG 3.1253.125 MG PO; +KEFLEX500 MG PO; +LIPITOR20 MG PO
[2017-12-24 13:48] LABS: BASOPHILS 0.3 % (0-2); EOSINOPHILS 1.4 % (0-7); HEMOGLOBIN 11.5 g/dL (13.5-17.5); IMMATURE GRANULOCYTES 0.2 % (0-5); LYMPHOCYTES 14.4 % (15-50); MCH 32.3 pg (26.0-34.0); MCHC 33.8 g/dL (31.0-37.0); MCV 95.5 fL (80.0-100.0); MEAN PLATELET VOLUME 9.8 fL (7.4-10.4); MONOCYTES 9.9 % (2-11); NEUTROPHILS 73.8 % (40-80); RBC 3.56 10x6/uL (4.20-6.10); RDW 13.7 % (11.5-14.5); WBC 6.4 10x3/uL (4.8-10.8)
[2017-12-24 13:52] LABS: PLATELET COUNT 341 10x3/uL (130-400)
[2017-12-24 14:09] LABS: ALBUMIN 3.1 g/dL (3.4-5.0); BILIRUBIN - DIRECT 0.24 mg/dL (0.00-0.30); BILIRUBIN - INDIRECT 0.63 mg/dL (0.00-1.00); BILIRUBIN - TOTAL 0.87 mg/dL (0.2-1.3); CHOL - HDL RATIO 3.5 ratio (2.3-4.9); LDL-HDL RATIO 2.3 ratio (1.5-3.5)
== END | disposition home or self-care (01) ==
LOC: D.LABREF 12:57
PROVIDERS: Internal Medicine Cardiovascular Disease
DX: I21.29 ST elevation (STEMI) myocardial infarction involving other sites (principal); I21.21 ST elevation (STEMI) myocardial infarction involving left circumflex coronary artery; I10 Essential (primary) hypertension

== ENCOUNTER 2018-01-04 07:22 | Observation (INO) | payer MEDICARE, OTHER ==
[~2018-01-04] VITALS: Ht 185.4 cm; Wt 79.8 kg
--- NOTE | ~2018-01-04 | HEMODYNAMI ---
PATIENT:NABILA HENDERSON MEDICAL RECORD: [id number] : 36 LOCATION:[facility] ADMISSION DATE: 01/04/18 Generatedon:01/04/201811:08 Patient name: NABILA HENDERSON Patient #: [id number] : 1940 Date of study: 01/04/2018 Page: Of Hemodynamic Procedure Report Patient Data Patient Demographics Procedure consent was obtained First Name: NABILA Gender: Male Last Name: BEATRIZ : 1940 Middle Initial: S Age: 77 year(s) Patient #: [id number] Race: SSN: [id number] Additional ID: [id number] Contact details Address: [address] State: [place] City: [place] Zip code: [address] Admission Admission Data Admission Date: 01/04/2018 Admission Time: 7:22 Procedure Procedure Types Cath Procedure Diagnostic Procedure PPM/ICD Internal Cardiac Defib Dual Procedure Description Procedure Date Procedure Date: 01/04/2018 Procedure Start Time: 10:23 Procedure End Time: 11:05 Procedure Staff Name Function Taye Winston MD Performing Physician Lyndon Mo RT Monitor Rowena Poe RN Nurse Elena Boyd RT Scrub Procedure Data Cath Procedure Fluoroscopy Diagnostic fluoroscopy Total fluoroscopy Time: 1.9 time: 1.9 min min Diagnostic fluoroscopy Total fluoroscopy dose: 25 dose: 25 mGy mGy Contrast Material Contrast Material Type Amount (ml) Visipaque 320 10 Estimated blood loss: 5 ml Procedure Complications No complications Procedure Medications Medication Administration Route Dosage Ancef (1Gm/50ml NS) I.V.P.B 1 g Oxygen NC 2 l/min Lidocaine 1% added to field 20 Ancef Irrigation Topical 1 g (1gm/500ml NS) Versed I.V. 1 mg Fentanyl I.V. 50 mcg Versed I.V. 1 mg Fentanyl I.V. 50 mcg Versed I.V. 1 mg Hemodynamics Rest Heart Rate: 48 (bpm) Snapshots Pre Cath Intra NCS Post Cath Vital Signs Time Heart Resp SPO2 etCO2 NIBP (mmHg) Rhythm Pain Sedation Rate (ipm) (%) (mmHg) Status Level (bpm) 9:53:27 52 21 99 0 142/81(100) NSR 0 (11) 10(A) , No pain 9:57:39 52 18 98 0 145/79(110) NSR 0 (11) 10(A) , No pain 10:01:51 51 12 100 29.2 138/79(98) NSR 0 (11) 10(A) , No pain 10:06:46 54 15 100 28.5 142/75(94) NSR 0 (11) 10(A) , No pain 10:10:58 48 13 100 35.3 133/72(95) NSR 0 (11) 10(A) , No pain 10:15:01 48 13 100 0 126/70(89) NSR 0 (11) 10(A) , No pain 10:19:48 52 12 100 32.3 119/72(89) NSR 0 (11) 10(A) , No pain 10:23:50 50 18 100 27 128/76(97) NSR 0 (11) 10(A) , No pain 10:27:55 83 17 99 32.3 129/75(101) NSR 0 (11) 10(A) , No pain 10:32:03 49 12 96 33.8 119/70(94) NSR 0 (11) 10(A) , No pain 10:36:09 54 16 95 40.5 119/68(86) NSR 0 (11) 10(A) , No pain 10:40:13 50 13 96 39 120/70(91) NSR 0 (11) 10(A) , No pain 10:44:17 48 14 93 36.8 126/69(92) NSR 0 (11) 10(A) , No pain 10:48:24 58 18 95 30 122/69(91) NSR 0 (11) 10(A) , No pain 10:52:28 50 16 97 29.2 133/72(105) NSR 0 (11) 10(A) , No pain 10:56:36 51 16 95 30 134/74(93) NSR 0 (11) 10(A) , No pain 11:01:25 50 16 98 33 127/73(97) NSR 0 (11) 10(A) , No pain 11:06:12 55 15 88 33.8 134/72(115) NSR 0 (11) 10(A) , No pain Medications Time Medication Route Dose Verified Delivered Reason Notes Effectiv eness by by 9:56:43 Ancef I.V.P.B 1 g Taye Buffie used for (1Gm/50ml Norred Poe media sales consultant NS) 9:59:38 Oxygen NC 2 Taye Buffie used for l/min Norred Poe media sales consultant 9:59:46 Lidocaine added 20ml Taye Buffie for local 1% to vial Norred Poe RN anesthetic field x2 MD 10:00:32 Ancef Topical 1 g Taye Buffie used for Irrigation Norred Poe media sales consultant (1gm/500ml MD NS) 10:20:03 Versed I.V. 1 mg Taye Buffie for Norred Poe RN sedation 10:20:09 Fentanyl I.V. 50 Taye Buffie for mcg Norred Poe RN sedation 10:24:54 Versed I.V. 1 mg Taye Buffie for Norred Poe RN sedation 10:24:59 Fentanyl I.V. 50 Taye Buffie for mcg Norred Poe RN sedation 10:37:42 Versed I.V. 1 mg Taye Buffie for Norred Poe RN sedation Procedure Log Time Note 9:39:08 Lyndon ULLOA(R) sent for patient. Start room use. 9:39:09 Time tracking: Regular hours (M-F 7:00 - 5:00) 9:39:13 Plan of Care:Hemodynamics will remain stable., Cardiac rhythm will remain stable., Comfort level will be maintained., Respiratory function will remain adequate., Patient/ family verbilizes understanding of procedure., Procedure tolerated without complication., Recovers from procedure without complications.. 9:45:52 Patient received from Pre/Post Procedure Room to CCL 3 Alert and oriented. Tansferred to table in Supine position. 9:45:53 Warm blankets applied, and tracee hugger turned on for patient comfort. 9:45:54 Correct patient and procedure confirmed by team. 9:45:55 Signed procedure consent form obtained from patient. 9:45:55 ECG and BP/O2 sat monitors applied to patient. 9:52:15 Vital chart was started 9:56:43 Ancef (1Gm/50ml NS) 1 g I.V.P.B was administered by Rowena Poe RN; used for procedure; 9:57:11 Rhythm: sinus bradycardia 9:57:12 Full Disclosure recording started 9:57:41 H&P Date Dictated: 12/29/2017 Within 30 days and on chart., H&P Addendum completed by physician on day of procedure. (MUST COMPLETE FOR ALL OUTPATIENTS). 9:57:42 Pre-procedure instructions explained to patient. 9:57:42 Pre-op teaching completed and patient verbalized understanding. 9:57:45 Family in waiting room. 9:57:46 Patient NPO since Midnight. 9:57:47 Is the patient allergic to Iodine/contrast media? No. 9:57:49 Is patient on blood thinner?Yes 9:57:51 ACC The patient was administered the following blood thiners within the last 24 hours: ACCPlavix 9:57:53 Patient diabetic? No. 9:57:55 Previous problem with sedation/anesthesia? No ? 9:57:56 Snore? Yes 9:57:57 Sleep apnea? No 9:57:57 Deviated septum? No 9:57:58 Opens mouth fully? Yes 9:57:59 Sticks out tongue? Yes 9:58:03 Airway obstruction? Yes COPD 9:58:08 Dentures? Yes OUT 9:58:12 Patient pain scale 0/10 ?. 9:58:18 IV patent on arrival in left forearm with 0.9% NaCl at KVO. 9:58:23 IV patent on arrival in right forearm with 0.9% NaCl at KVO. 9:58:25 Lab results completed and on chart. 9:58:30 Left chest area was prepped with chlora-prep and draped in sterile fashion 9:58:30 Alarms reviewed by R. N. 9:58:31 Sharps counted by scrub and verified by R.N. 9:58:41 Medtronic residential sales representative Golden Holland present for procedure. 9:59:23 Pre sharps counted by scrub and verified by RN: Sutures: 2; Sponges: 5; Stick needles: 2; Skin needles: 2; Blade: 1; Cautery: 1 9:59:27 Grounding pad site Right thigh. 9:59:28 Grounding pad site free from injury. 9:59:33 Use device set NORRED PPM 9:59:38 Oxygen 2 l/min NC was administered by Rowena Poe RN; used for procedure; 9:59:39 Cautery Pushbutton Pencil opened to sterile field. 9:59:39 Cautery Tip International Logistics Manager opened to sterile field. 9:59:41 Stapler Skin 35W Proximate Plus (PMW35) opened to sterile field. 9:59:42 Tegaderm 4 x 4 (1626W) opened to sterile field. 9:59:43 2-0 Vicryl Plus [id number] opened to sterile field. 9:59:44 2-0 Silk 685H opened to sterile field. 9:59:46 Lidocaine 1% 20ml vial x2 added to field was administered by Rowena Poe RN; for local anesthetic; 9:59:48 Immobilizer Large opened to sterile field. 10:00:04 MICROPUNCTURE 4FR [employer] Designs ([id number]) opened to sterile field. 10:00:32 Ancef Irrigation (1gm/500ml NS) 1 g Topical was administered by Rowena Poe RN; used for procedure; 10:01:15 IV Extension Set opened to sterile field. 10:07:34 Physician paged 10:17:18 Baseline sample Acquired. 10:18:22 --------ALL STOP TIME OUT------ 10:18:22 Final Timeout: patient, procedure, and site verified with staff and physician. All members of the team are in agreement. 10:18:30 Left chest site verified by team. 10:18:34 Physical assessment completed. ASA score P 2 - A patient with mild systemic disease as per Taye Winston MD. 10:18:38 Sedation plan: IV Moderate Sedation Medication:Versed, Fentanyl 10:20:03 Versed 1 mg I.V. was administered by Rowena Poe RN; for sedation; 10:20:09 Fentanyl 50 mcg I.V. was administered by Rowena Poe RN; for sedation; 10:23:27 Procedure started. 10:23:32 Lidocaine 1% was administered to left subclavicular area by Taye Winston MD . 10:24:06 Incision made to left subclavicular area. 10:24:54 Versed 1 mg I.V. was administered by Rowena Poe RN; for sedation; 10:24:59 Fentanyl 50 mcg I.V. was administered by Rowena Poe RN; for sedation; 10:26:40 Generator pocket made/opened. 10:30:55 Medtronic 6147V82 ICD Lead opened to sterile field. 10:30:56 VISIA Single Chamber ICD DVB1D4 opened to sterile field. 10:32:31 Access obtained with 4Fr micropunture. 10:32:37 Right subclavian vein accessed with 7Fr Peel Away Sheath. 10:35:08 Ventricular lead inserted and advanced. 10:37:42 Versed 1 mg I.V. was administered by Rowena Poe RN; for sedation; 10:37:43 Peel-a-way sheath was split and removed. 10:37:48 Ventricular lead positioned. 10:38:00 Ventricular lead tested. 10:43:25 Ventricular lead attachment was completed with 2-0 silk. 10:43:29 PPM Single was attached to lead(s) and inserted into pocket. 10:43:33 Device pocket was irrigated with Ancef. 10:48:02 Subcutaneous closure was completed with 2-0 vicryl. 10:51:10 Skin closure was completed with 35mm Jeanine. 10:51:19 Lt Chest incision was dressed with gauze eyepad and tegaderm. 10:59:47 Procedure ended.(Physican Out) 11:00:34 Post sharps counted by scrub and verified by RN: Sutures: 2; Sponges: 5; Stick needles: 2; Skin needles: 2; Blade: 1; Cautery: 1 11:00:45 Fluoroscopy time 01.90 minutes. 11:00:49 Fluoroscopy dose: 25 mGy 11:00:49 Flurop Dose total: 25 11:01:08 Contrast amount:Visipaque 320 10ml. 11:01:09 Sharps counted by scrub and verified by R.N. 11:04:56 Insertion/operative site no bleeding no hematoma. 11:04:57 Post Procedure Pulses reassessed and unchanged 11:05:00 Post-procedure physical assessment completed. ASA score P 2 - A patient with mild systemic disease as per Taye Winston MD. 11:05:04 Post procedure rhythm: paced 11:05:06 Estimated blood loss: 5 ml 11:05:08 Post procedure instruction explained to patient.Patient verbalizes understanding. 11:05:08 Patient needs reinforcement of post procedure teaching. 11:05:17 Procedure and supply charges have been captured, reviewed, submitted and are correct. 11:05:21 Procedure Complication : No complications 11:05:37 Vital chart was stopped 11:05:37 See physician's report for complete and final results. 11:05:39 Report given to Pre/Post Procedure Room. 11:05:54 Patient transfered to Pre/Post Procedure Room with Stretcher. 11:05:57 Procedure ended. 11:05:57 Full Disclosure recording stopped 11:06:29 End room use (Document Last) Device Usage Item Name Manufacture Quantity Catalog Hospital Part Current Minimal Lot# / Number Charge Number Stock Stock Serial# Code Cautery Microtek 1 [id number] [id number] 5 Pushbut[employer] Pencil Cautery Tip Microtek 1 [id number] 876063 069204 661023 5 International Logistics Manager[employer]. Stapler Skin Unknown 1 PMW35 842186 194063 934189 5 35W Proximate Plus (PMW35) Tegaderm 4 x 3M 1 1626W 171101 853729 697767 5 4 (1626W) 2-0 Vicryl Ethicon 1 [id number] 297892 389257 669373 5 Plus CLY092 2-0 Silk 685H Ethicon 1 685H 147475 44279 877551 5 Immobilizer Cardinal 1 79-16099 647735 661027 206582 5 Large Health MICROPUNCTURE [facility] 1 [id number] 540894 304087 896933 5 4FR [place] (J00535) IV Extension Hospira 1 06549-59 214419 80387 260513 5 Set Medtronic Medtronic 1 1847N25 705769 984732 407839 5 [id number] 3209T15 ICD EXP Lead 10-15-2019 VISIA Single Medtronic 1 [id number] 010068 402530 148826 5 [id number] Chamber ICD EXP QZCG1D9 04-24-19 Signature Audit [place] Stage Time Signature Unsigned Intra-Procedure 01/04/2018 Lyndon Mo 11:08:10 AM RT(R) Signatures Monitor : Lyndon Mo RT Signature : Date : Time : [address] [place] [address]
[~2018-01-04 07:22] MED LIST changes: -KEFLEX500 MG PO
[2018-01-04 07:48] LABS: HEMATOCRIT 37.5 % (42.0-54.0); HEMOGLOBIN 12.8 g/dL (13.5-17.5); MCHC 34.1 g/dL (31.0-37.0); MCV 96.6 fL (80.0-100.0); RBC 3.88 10x6/uL (4.20-6.10); RDW 13.7 % (11.5-14.5); WBC 6.5 10x3/uL (4.8-10.8)
[2018-01-04] MEDS ORDERED: PLAVIX75 MG PO (07:52)
[2018-01-04 07:55] VITALS: BP 153/81; BMI 23.8
[2018-01-04 07:56] LABS: CALCIUM 8.3 mg/dL (8.5-10.1); CARBON DIOXIDE 31.3 mmol/L (21.0-32.0); CREATININE - SERUM 1.2 mg/dL (0.6-1.3); POTASSIUM - SERUM 3.3 mmol/L (3.5-5.1)
[2018-01-04 08:02] LABS: APTT 26.9 SECONDS (22.8-39.4); INR 1.11 (0.85-1.17); PROTIME 13.9 SECONDS (11.6-15.0)
[2018-01-04 14:00] VITALS: BP 150/80; Ht 185.4 cm; Wt 79.8 kg
[2018-01-04 17:23] VITALS: BP 163/82
[2018-01-04 20:43] VITALS: BP 161/85
[2018-01-05 00:28] VITALS: BP 119/71
[2018-01-05 04:44] VITALS: BP 109/75
[2018-01-05 08:07] VITALS: BP 158/83
[2018-01-05] MEDS ORDERED: KEFLEX500 MG PO (08:36)
== END 2018-01-05 11:39 | disposition home or self-care (01) ==
LOC: D.CATH 07:22 → D.M2 13:42 → OBSVTIME 13:43 → D.CATH 13:43 → D.M2 13:43
PROVIDERS: Internal Medicine Cardiovascular Disease
DX: I25.5 Ischemic cardiomyopathy (principal); I10 Essential (primary) hypertension

== ENCOUNTER → 2019-04-03 09:44 | Outpatient (CLI) | payer MEDICARE, OTHER ==
[2018-01-04 14:00] VITALS: BMI 23.9
[~2019-04-03 09:44] MED LIST changes: +KEFLEX500 MG PO
--- NOTE | 2019-04-04 13:38 | EC ---
PATIENT:NABILA HENDERSON DATE OF SERVICE: 04/03/19 SEX: M MEDICAL RECORD: [id number] DATE OF : 36 LOCATION:[facility] AGE OF PATIENT: 78 ADMISSION DATE: 04/03/19 REFERRING PHYSICIAN: INTERPRETING PHYSICIAN: CELESTE SUAREZ MD ECHOCARDIOGRAM REPORT ECHO CHARGES 4 ECHO COMPLETE Date: 04/03/19 CLINICAL DIAGNOSIS: CARDIOMYOPATHY HX ICD ECHOCARDIOGRAPHIC MEASUREMENTS (adult normal given) AC root (d.<3.7cm) 3.7 cm LV Septum d (<1.2 cm> 1.4 cm Valve Excursion 1.9 cm LV Septum (systole) 1.5 cm Left Atria (s.<4.0cm> 4.5 cm LVPW d(<1.2cm) 1.4 cm RV (d.<2.3cm) 4.4 cm LVPW (sytole) 1.5 cm LV diastole(<5.6CM) 8.2 cm MV E-F(>70mm/sec) cm LV systole 7.0 cm LVOT Diameter cm MV exc.(>10mm) 1.8 cm Est.ejection fraction (50-75%) % DOPPLER: LVIT cm/sec A 84.0 cm/sec E 67.0 cm/sec LA cm/sec RVSP 23 mmHg LVOT 87 cm/sec AOP1/2T 696 m/s Asc. Ao 109 cm/sec RVOT 69 cm/sec RA cm/sec PA 105 cm/sec AV Gradient Peak 4.77 mmHg AV Mean 2.58 mmHg AV Area 2.0 cm MV Gradient Peak 3.41 mmHg MV Mean 1.03 mmHg MV Area cm COMMENTS: Plate Furnace Operator: Madhu DUNN Landscape Horticulture Instructor: 1 Dr. Suarez TAPE# PACS Pericardial Effusion N DATE OF SERVICE: 04/03/2019 FINDINGS: 1. Left ventricular chamber size is dilated. Left ventricular systolic function moderately reduced at 35% to 40%; however, this is an improvement. Last echo with ejection fraction in the 30% range. 2. Left atrium is enlarged at 4.5 cm. Right atrium and right ventricle chamber sizes are as well moderately dilated. 3. Valvular structures have normal structure and motion. 4. Doppler interrogation reveals mild aortic insufficiency, mild mitral ECHOCARDIOGRAM REPORT [id number] NABILA HENDERSON regurgitation, trace tricuspid regurgitation, no other valvular insufficiency or stenosis. Pulmonary systolic pressure is estimated at 23 mmHg. 5. No evidence of pericardial effusion or left ventricular thrombus. TRANSINT:[id number] Voice Confirmation ID: [id number] DOCUMENT ID: [id number] CELESTE SUAREZ MD at 1338 CC: [id number] DICTATION DATE: 04/03/19 1655 TRAVEL DIRECTOR: 04/04/19 0130 DEP CLI 04/03/19 [place] [id number] [place] [id number]
== END | disposition home or self-care (01) ==
LOC: D.HCCECHO 09:44
PROVIDERS: ATTEND Internal Medicine Interventional Cardiology
DX: I42.9 Cardiomyopathy, unspecified (principal)

== ENCOUNTER → 2019-06-19 10:14 | Outpatient (CLI) | payer MEDICARE, OTHER ==
[2018-01-04 14:00] VITALS: BMI 23.9
== END | disposition home or self-care (01) ==
LOC: D.LABREF 10:14
PROVIDERS: ATTEND Orthopaedic Surgery
DX: M17.12 Unilateral primary osteoarthritis, left knee (principal)

== ENCOUNTER 2019-06-22 11:25 | Inpatient (IN) | payer MEDICARE, OTHER ==
[~2019-06-22] VITALS: Ht 182.9 cm; Wt 77.1 kg
[2019-07-19] VITALS (11 sets, daily range): BP systolic 110–172; BP diastolic 37–90; BMI 23.8; BMI 23.1
[2019-07-19 06:10] LABS: BASOPHILS 0.2 % (0-2); EOSINOPHILS 3.3 % (0-7); HEMATOCRIT 37.6 % (42.0-54.0); HEMOGLOBIN 12.5 g/dL (13.5-17.5); IMMATURE GRANULOCYTES 0.2 % (0-5); LYMPHOCYTES 23.8 % (15-50); MCH 32.2 pg (26.0-34.0); MCHC 33.2 g/dL (31.0-37.0); MCV 96.9 fL (80.0-100.0); MEAN PLATELET VOLUME 9.7 fL (7.4-10.4); MONOCYTES 10.7 % (2-11); NEUTROPHILS 61.8 % (40-80); PLATELET COUNT 173 10x3/uL (130-400); RBC 3.88 10x6/uL (4.20-6.10); RDW 13.6 % (11.5-14.5); WBC 5.7 10x3/uL (4.8-10.8)
[2019-07-19 06:28] LABS: ANION GAP 8.8 mmol/L (8-16); CALCIUM 8.1 mg/dL (8.5-10.1); CARBON DIOXIDE 33.6 mmol/L (21.0-32.0); CREATININE - SERUM 1.2 mg/dL (0.6-1.3); POTASSIUM - SERUM 3.4 mmol/L (3.5-5.1)
[2019-07-19 06:33] LABS: APTT 27.8 SECONDS (22.8-39.4); INR 1.07 (0.85-1.17); PROTIME 13.8 SECONDS (11.6-15.0)
--- NOTE | 2019-07-19 08:00 | NUR ---
CASE STARTED LATE DUE TO OR MEETING
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
--- NOTE | 2019-07-19 10:34 | NUR ---
PATIENT ADMITTED TO ROOM 2221. ADMISSION COMPLETE. FAMILY AT BEDSIDE. BED ALARM ON. SCDS ON. DENIES NEEDS. BED LOW. CALL PEREZ AND PERSONAL ITEMS IN REACH. WILL CONTINIUE TO MONITOR.
--- NOTE | 2019-07-19 14:33 | OP ---
PATIENT NAME: NABILA PIERSON MEDICAL RECORD: [id number] :36 LOCATION:[id number] ADMISSION DATE:07/19/19 SURGEON: LES ZAMORA DO DATE OF OPERATION: 07/19/2019 PROCEDURE PERFORMED: Left total knee arthroplasty. PREOPERATIVE DIAGNOSIS: Left knee osteoarthritis. POSTOPERATIVE DIAGNOSIS: Left knee osteoarthritis. INDICATIONS: Mr. Pierson is an 78-year-old male, who has had all manner of nonoperative treatment for his left knee. He has severe asse-uy-kizy osteoarthritis. He is tired of affecting his activities of daily living and wants something done surgically. I informed him of the risks including infection, bleeding, damage to nerves and vessels, fracture, failure of implant, need for further surgery, blood clots, and even and he signed the consent. SURGEON: Les Zamora DO I was assisted by Zach Pelayo, certified surgical first coat operator, he assisted with retraction and closing and passing instruments. The patient received a block in the preoperative area. He was taken to the operative suite, laid in the supine position, given general anesthetic. LMA was placed. The left lower extremity was then prepped and draped in sterile fashion. He was given 2 grams Ancef and 80 mg gentamicin prior to starting. The left lower extremity was then prepped and draped in sterile fashion. Timeout was performed, everyone was in agreement with correct side, site, patient and procedure. The incision was then marked out and then covered in [place]an. Then went through with the 10 blade scalpel down and the capsule dissected out carefully. Any bleeding was coagulated with Aquamantys throughout the procedure. I then used a 10-blade scalpel to the medial parapatellar approach, opening up the joint, the part of the fat pad was then removed and the patella was milled down to fit a prosthesis. We then flexed the femur up and the femoral canal was entered and the distal femur guide was put in and the distal femur was cut. The proximal tibia was then cut and then menisci were removed. The 10 extension block was put in and fit very well. The knee was then flexed up and the femur was sized to be 70. A 70, 4-in-1 cutting block was then impacted on. An mikaela wing was used to ensure there was no notching. The 4-in-1 cutting block was then used to cut the distal femur and then this bone was removed. I then put the trial on and floated the tibia tray in with a poly, marked the rotation, patella was then drilled as well as the lug holes on the femur. All the trials were removed at that time and then the tibia was exposed sized to be a 79. This was drilled and punched. Extraocular holes put in the tibia to help with the cement into the tibia. The cement was then mixed, placed in the tibia and on the implant, impacted in place. Excess cement was removed. The femur was then impacted on and a 10 poly was put in between the knee, it was brought to extension. The holes of the patella were then washed out and curetted out and then the cement was put in them and on the implant and squeezed into place and held in place while the cement dried. The knee was irrigated and then the 10% povidone iodine solution with 500 mL of normal saline was put in the knee and left for 3 minutes. This was then irrigated out with over about a liter of normal saline. We then sized and a 12 poly fit very well. We put in a 12 E poly anterior stabilized and locked it into place and had good stability both medial and lateral stress in extension and flexion. I then irrigated again, put in vancomycin and tobramycin powder as OPERATIVE REPORT [id number] NABILA PIERSON S well as Shasha powder. The knee was then closed with two #2 Ethibond in a fqiize-gw-arrfh fashion and the skin was closed with 2-0 Vicryl in interrupted fashion. ZipLine was placed on the knee. Adaptic, 4 x 4s, ABD, Webril and Petr wrap were then placed on the knee and DANG hose stocking up to the knee. He was awakened and taken to recovery in stable condition. Blood loss approximately 300 mL. COMPLICATIONS: None. TRANSINT:[id number] Voice Confirmation ID: [id number] DOCUMENT ID: [id number] LES ZAMORA DO at 1433 CC: [id number] DICTATION DATE: 07/19/19921 MAINTENANCE MECHANIC HELPER: 07/19/19 1228 [facility] [place] [address] [place] [address]
--- NOTE | 2019-07-19 20:00 | NUR ---
ALERT RESTING IN BED, CPM IN PLACE, DENIES PAIN OR NEEDS, SEE ASSESSMENT, CALL LIGHT IN REACH
[2019-07-20 05:30] LABS: BASOPHILS 0.1 % (0-2); HEMATOCRIT 31.1 % (42.0-54.0); HEMOGLOBIN 10.4 g/dL (13.5-17.5); IMMATURE GRANULOCYTES 0.1 % (0-5); LYMPHOCYTES 14.6 % (15-50); MCH 32.2 pg (26.0-34.0); MCHC 33.4 g/dL (31.0-37.0); MCV 96.3 fL (80.0-100.0); MEAN PLATELET VOLUME 10.4 fL (7.4-10.4); MONOCYTES 10.1 % (2-11); NEUTROPHILS 73.1 % (40-80); PLATELET COUNT 171 10x3/uL (130-400); RBC 3.23 10x6/uL (4.20-6.10); RDW 13.4 % (11.5-14.5)
[2019-07-20 05:55] LABS: WBC 7.5 10x3/uL (4.8-10.8)
[2019-07-20 06:02] LABS: ALBUMIN 2.2 g/dL (3.4-5.0); ANION GAP 11.4 mmol/L (8-16); BILIRUBIN - TOTAL 0.41 mg/dL (0.2-1.3); CALCIUM 7.1 mg/dL (8.5-10.1); CARBON DIOXIDE 28.1 mmol/L (21.0-32.0); CREATININE - SERUM 2.6 mg/dL (0.6-1.3); MAGNESIUM - SERUM 1.7 mg/dL (1.8-2.4); PHOSPHOROUS 3.5 mg/dL (2.5-4.9); POTASSIUM - SERUM 3.5 mmol/L (3.5-5.1); PROTEIN - SERUM 4.9 g/dL (6.4-8.2)
--- NOTE | 2019-07-20 07:10 | NUR ---
PT RESTING IN BED. NO SIGNS OF DISTRESS. IV TO RIGHT FORARM PATENT NO REDNESS OR TENDERNESS. INCISION TO LEFT KNEE. DRESSING CLEAN AND INTACT. CPM ON. DENIES ANY FURTHER NEED AT THIS TIME. CALL LIGHT IN REACH. BED LOW POSITION. NO FAMILY AT BEDSIDE AT THIS TIME.
[2019-07-20 09:20] VITALS: BP 116/57
[2019-07-20 12:31] VITALS: BP 135/61
[2019-07-20 14:13] VITALS: Ht 182.9 cm; Wt 77.1 kg
[2019-07-20 17:36] VITALS: BP 153/70
--- NOTE | 2019-07-20 18:27 | NUR ---
I have reviewed this patient and I concur with the Shift Assessment completed by the Licensed Practical Nurse today this shift.
--- NOTE | 2019-07-20 19:00 | NUR ---
A/O WITH NO SIGNS OF ACUTE DISTRES. IV TO THE RT FOREARM WITH NO REDNESS OR SWELLING NOTED. CLEAN INTACT DRESSING NOTED TO THE LEFT KNEE, PULSE PALP. LT LEG IN CPM. DENIES NO NEEDS AT THIS TIME. CONTINUE PLAN OF CARE.
[2019-07-20 19:30] VITALS: BP 149/75
[2019-07-21 00:30] VITALS: BP 138/72
[2019-07-21 05:30] VITALS: BP 141/70
[2019-07-21 06:24] LABS: BASOPHILS 0.1 % (0-2); EOSINOPHILS 3.6 % (0-7); HEMATOCRIT 30.8 % (42.0-54.0); HEMOGLOBIN 10.6 g/dL (13.5-17.5); IMMATURE GRANULOCYTES 0.1 % (0-5); LYMPHOCYTES 12.5 % (15-50); MCH 32.4 pg (26.0-34.0); MCHC 34.4 g/dL (31.0-37.0); MEAN PLATELET VOLUME 10.3 fL (7.4-10.4); MONOCYTES 12.2 % (2-11); NEUTROPHILS 71.5 % (40-80); PLATELET COUNT 155 10x3/uL (130-400); RBC 3.27 10x6/uL (4.20-6.10); RDW 13.2 % (11.5-14.5); WBC 7.5 10x3/uL (4.8-10.8)
[2019-07-21 06:41] LABS: MCV 94.2 fL (80.0-100.0)
[2019-07-21 06:47] LABS: ALBUMIN 2.2 g/dL (3.4-5.0); ANION GAP 8.8 mmol/L (8-16); BILIRUBIN - TOTAL 0.77 mg/dL (0.2-1.3); CALCIUM 7.6 mg/dL (8.5-10.1); CARBON DIOXIDE 29.4 mmol/L (21.0-32.0); MAGNESIUM - SERUM 1.8 mg/dL (1.8-2.4); PHOSPHOROUS 3.1 mg/dL (2.5-4.9); POTASSIUM - SERUM 3.2 mmol/L (3.5-5.1); PROTEIN - SERUM 5.4 g/dL (6.4-8.2)
[2019-07-21 06:54] LABS: CREATININE - SERUM 1.6 mg/dL (0.6-1.3)
--- NOTE | 2019-07-21 07:51 | NUR ---
AWAKE AND ALERT. ORIENTED X3. NO C/O AT THIS TIME. LUNGS ARE CLEAR BILATERALLY, NO COUGH NOTED. SKIN IS INTACT WITHOUT REDNESS EXCEPT INCISION TO LEFT KNEE AND WOUND TO RIGHT CALF WHICH HAS A DRY INTACT DRESSING IN PLACE. ON CPM AT THIS TIME. TEDS AND SCD'S IN PLACE. IV TO RIGHT FOREARM IS PATENT WITHOUT REDNESS AT INSERTION SITE. DENIES NEEDS. NO BM SINCE SURGERY.
--- NOTE | 2019-07-21 08:56 | MORECARE ---
CASE MANAGEMENT DISCHARGE SUMMARY PATIENT: NABILA HENDERSON S UNIT: [id number] ADM DATE: 07/19/19 AGE: 78 : 38 SEX: M ROOM/BED: D.2222 AUTHOR: ANGELICA MOREIRA PHYSICIAN: REFERRING PHYSICIAN: CODY ZAMORA DO DATE OF SERVICE: 07/21/19 Discharge Plan Patient Name: NABILA HENDERSON [facility] [facility] 1940 Planned Disposition: Home with Home Health Anticipated Discharge Date: 07/21/19 Discharge Date: Expected LOS: 2 Initial Reviewer: [email or web address] Initial Review Date: 07/21/2019 Generated: 07/21/19 9:56 am DCPIA - Discharge Planning Initial Assessment Updated by [email or web address]: Corazon Leiva on 07/21/19 8:53 am * Is the patient Alert and Oriented? Yes * How many steps to enter\exit or inside your home? 2w/rails/0 * PCP Dr. Newby * Pharmacy [facility] * Preadmission Environment Home with Family * ADLs Independent * Equipment Other Shower Chair Walker * Other Equipment CPM Ice machine * List name and contact numbers for known caregivers / representatives who currently or will assist patient after discharge: Hannah Jones [facility] - [phone] * Verbal permission to speak to the caregivers and representatives has been obtained from the patient. Yes * Community resources currently utilized None * Additional services required to return to the preadmission environment? Yes * Can the patient safely return to the preadmission environment? Yes * Has this patient been hospitalized within the prior 30 days at any hospital? No External [facility]iders [facility] Next Contact Date: Service Request Date: Service Type: Resolution: Reviewer: Comments: Patient Name: NABILA HENDERSON Page [phone] at 0856 All edits/amendments must be made on the electronic document DICTATION DATE: 07/21/19 0856 [place] OPERATIONS: PONCE 07/21/19 0856 RPT#: [id number] DC DATE: STATUS: ADM IN [facility] [address] [id number] END OF REPORT
[2019-07-21 09:24] VITALS: BP 156/73
[2019-07-21] MEDS ORDERED: KEFLEX500 MG PO (09:28)
[2019-07-21] MEDS ORDERED: ELIQUIS2.5 MG PO (09:28)
[2019-07-21] MEDS ORDERED: HYDROCODON-ACE1 EAC7 PO (09:28)
--- NOTE | 2019-07-21 10:00 | NUR ---
UP TO SHOWER WITH SET UP ASSISTANCE. DID WELL. DENIES NEEDS.
--- NOTE | 2019-07-21 11:00 | NUR ---
SHOWER FINISHED. DRESSING TO RIGHT SMITH CHANGED. WOUND IS APPROXIMATELY 2CM ROUND. SILVADENE APPLIED TO AREA. COVER WITH NON ADHERANT DRESSING AND ABDOMINAL PAD AND WRAPPED WITH DENIZ WRAP. TOLERATED WELL.
--- NOTE | 2019-07-21 11:02 | MORECARE ---
CASE MANAGEMENT DISCHARGE SUMMARY PATIENT: NABILA HENDERSON UNIT: [id number] ADM DATE: 07/19/19 AGE: 78 : 38 SEX: M ROOM/BED: D.2222 AUTHOR: HARISH,DOC PHYSICIAN: REFERRING PHYSICIAN: CODY ZAMORA DO DATE OF SERVICE: 07/21/19 Discharge Plan Patient Name: NABILA HENDERSON Facility: [facility]:[place] : 1940 Planned Disposition: Home with Home Health Anticipated Discharge Date: 07/21/19 Discharge Date: Expected LOS: 2 Initial Reviewer: [email or web address] Initial Review Date: 07/21/2019 Generated: 07/21/19 12:02 pm Comments DCP- Discharge Planning Updated by [email or web address]: Corazon Leiva on 07/21/19 7:[address] Patient Name: NABILA HENDERSON Admission Status: Elective Accout number: [id number] Admission Date: 07-19-2019 : 1940 Admission Diagnosis: Attending: CODY ZAMORA Current LOS: 2 Anticipated DC Date: 07-21-2019 Planned Disposition: Home with Home Health Primary Insurance: MEDICARE A & B Discharge Planning Comments: CM met with patient to complete initial dc planning assessment. CM educated patient on the CM role and verbal consent given by patient to complete assessment. Patient lives at home with his grand son. At discharge patient plans to return and feels this is a safe discharge. CM discussed availability of home health, rehab services, and medical equipment. Patient states he would like to have home health for about a week with [facility], then go to outpatient therapy in [place]. I spoke with Dr. Zamora and he agrees with plan. I spoke with Pily at [facility] and clinical faxed, they will see him on Wednesday. Patient states he already has equipment delivered at the house and denies further needs. His daughter, Hannah, will take him home. CM will continue to follow and will assist as needed with dc plans/needs. Operations Expert: Corazon Leiva DCPIA - Discharge Planning Initial Assessment Updated by [email or web address]: Corazon Leiva on 07/21/19 8:53 am * Is the patient Alert and Oriented? Yes * How many steps to enter\exit or inside your home? 2w/rails/0 * PCP Dr. Newby * Pharmacy [facility] in [place] * Preadmission Environment Home with Family * ADLs Independent * Equipment Other Shower Chair Walker * Other Equipment CPM Ice machine * List name and contact numbers for known caregivers / representatives who currently or will assist patient after discharge: Hannah Jones - DTR - [phone] * Verbal permission to speak to the caregivers and representatives has been obtained from the patient. Yes * Community resources currently utilized None * Additional services required to return to the preadmission environment? Yes * Can the patient safely return to the preadmission environment? Yes * Has this patient been hospitalized within the prior 30 days at any hospital? No Coverage Notice Reviewer: [email or web address] Courtney Leiva Notice Issued Date-Time: 07/21/2019 8:56 Notice Type: Patient Choice Letter Notice Delivered To: Patient Relationship to Patient: Self Gallery Assistant Name: Delivery Method: HAND - Hand Delivered Savannah Days: Prior Verbal Notification: Recipient Understood Notice: Yes Recipient Signature: Yes Med Rec Note Co-signed by Attending: Coverage Notice Comment: JESUS for [facility] Last DP export: 07/21/19 7:56 a Patient Name: NABILA HENDERSON Page [phone] at 1102 All edits/amendments must be made on the electronic document DICTATION DATE: 07/21/191101 TIP STRETCHER: PONCE 07/21/19 1102 RPT#: [id number] DC DATE: STATUS: ADM IN [facility] [address] [place] [address] END OF REPORT
--- NOTE | 2019-07-21 14:57 | NUR ---
DISCHARGED TO HOME AT THIS TIME, AMBULATORY. DISCHARGE INSTRUCTIONS GIVEN BOTH VERBALLY AND WRITTEN. ALL QUESTIONS ANSWERED. PATIENT AND FAMILY VERBALIZED UNDERSTANDING OF SAME. NEEDED PRESCRIPTIONS GIVEN TO PATIENT. IV TO RIGHT FOREARM D/C WITH CATHETER INTACT. ALL BELONGINGS WITH PATIENT.
--- NOTE | 2019-07-23 12:29 | MORECARE ---
CASE MANAGEMENT DISCHARGE SUMMARY PATIENT: NABILA HENDERSON UNIT: [id number] ADM DATE: 07/19/19 AGE: 78 : 38 SEX: M ROOM/BED: D.2222 AUTHOR: HARISH,DOC PHYSICIAN: REFERRING PHYSICIAN: CODY ZAMORA DO DATE OF SERVICE: 07/23/19 Discharge Plan Patient Name: NABILA HENDERSON Facility: [facility]:[place] : 1940 Planned Disposition: Home with Home Health Anticipated Discharge Date: 07/21/19 Discharge Date: 07/21/2019 Expected LOS: 2 Initial Reviewer: [email or web address] Initial Review Date: 07/21/2019 Generated: 07/23/19 1:29 pm Comments DCP- Discharge Planning Updated by [email or web address]: Corazon Leiva on 07/21/19 7:[address] Patient Name: NABILA HENDERSON Admission Status: Elective Accout number: [id number] Admission Date: 07-19-2019 : 1940 Admission Diagnosis: Attending: CODY ZAMORA Current LOS: 2 Anticipated DC Date: 07-21-2019 Planned Disposition: Home with Home Health Primary Insurance: MEDICARE A & B Discharge Planning Comments: CM met with patient to complete initial dc planning assessment. CM educated patient on the CM role and verbal consent given by patient to complete assessment. Patient lives at home with his grand son. At discharge patient plans to return and feels this is a safe discharge. CM discussed availability of home health, rehab services, and medical equipment. Patient states he would like to have home health for about a week with [facility], then go to outpatient therapy in [place]. I spoke with Dr. Zamora and he agrees with plan. I spoke with Pily at [facility] and clinical faxed, they will see him on Wednesday. Patient states he already has equipment delivered at the house and denies further needs. His daughter, Hannah, will take him home. CM will continue to follow and will assist as needed with dc plans/needs. Paper Baling Machine Operator: Corazon Leiva DCPIA - Discharge Planning Initial Assessment Updated by [email or web address]: Corazon Leiva on 07/21/19 8:53 am * Is the patient Alert and Oriented? Yes * How many steps to enter\exit or inside your home? 2w/rails/0 * PCP Dr. Newby * Pharmacy [facility] in [place] * Preadmission Environment Home with Family * ADLs Independent * Equipment Other Shower Chair Walker * Other Equipment CPM Ice machine * List name and contact numbers for known caregivers / representatives who currently or will assist patient after discharge: Hannah Jones [facility] - [phone] * Verbal permission to speak to the caregivers and representatives has been obtained from the patient. Yes * Community resources currently utilized None * Additional services required to return to the preadmission environment? Yes * Can the patient safely return to the preadmission environment? Yes * Has this patient been hospitalized within the prior 30 days at any hospital? No Coverage Notice Reviewer: [id number] Courtney Leiva Notice Issued Date-Time: 07/21/2019 8:56 Notice Type: Patient Choice Letter Notice Delivered To: Patient Relationship to Patient: Self Adjunct Business Instructor Name: Delivery Method: HAND - Hand Delivered Savannah Days: Prior Verbal Notification: Recipient Understood Notice: Yes Recipient Signature: Yes Med Rec Note Co-signed by Attending: Coverage Notice Comment: JESUS for [facility] Last DP export: 07/21/19 10:02 a Patient Name: NABILA HENDERSON Page 12213 at 1229 All edits/amendments must be made on the electronic document DICTATION DATE: 07/23/191228 RESEARCH NURSE PRACTITIONER: PONCE 07/23/19 1229 RPT#: [id number] DC DATE:07/21/19 STATUS: DIS IN [facility] [address] [place] [address] END OF REPORT
== END 2019-07-21 15:01 | disposition home health service (06) | DRG 470 ==
LOC: D.SDCHOLD 07-10 10:00 → D.MS 07-19 05:05 → D.SDCHOLD 07-19 07:00 → D.MS 07-19 09:42 → D.SDCHOLD 07-19 10:00 → D.MS 07-21 15:01
PROVIDERS: Family Medicine; ADMIT Orthopaedic Surgery; ATTEND Orthopaedic Surgery
PROC: 0SRD0J9 Replacement of Left Knee Joint with Synthetic Substitute, Cemented, Open Approach (ICD-10-PCS; principal; 2019-07-19 07:00)
DX: M17.12 Unilateral primary osteoarthritis, left knee (principal); I50.22 Chronic systolic (congestive) heart failure; E78.5 Hyperlipidemia, unspecified; I25.10 Atherosclerotic heart disease of native coronary artery without angina pectoris; I11.0 Hypertensive heart disease with heart failure; J44.9 Chronic obstructive pulmonary disease, unspecified

== ENCOUNTER → 2019-07-10 08:00 | Outpatient (CLI) | payer MEDICARE, OTHER ==
[2018-01-04 14:00] VITALS: BMI 23.9
[2019-07-10 13:12] LABS: APPEARANCE HAZY (CLEAR); BILIRUBIN NEGATIVE (NEGATIVE); COLOR DK YELLOW (YELLOW); GLUCOSE NEGATIVE (NEGATIVE); KETONE NEGATIVE (NEGATIVE); NITRITE NEGATIVE (NEGATIVE); PROTEIN 1+ mg/dL (NEGATIVE); SPECIFIC GRAVITY 1.015 (1.005-1.020); UROBILINOGEN NORMAL (NORMAL)
[2019-07-10 13:14] LABS: BACTERIA FEW /hpf (NEGATIVE); EPITHELIAL CELLS 0-5 /hpf (0-5); MUCUS <1+ /lpf (NONE SEEN); RED CELLS - URINE 0-5 /hpf (0-5); WHITE CELLS - URINE RARE /hpf (NEGATIVE)
[2019-07-10 13:15] LABS: HYALINE CAST RARE /lpf (NONE SEEN)
== END | disposition home or self-care (01) ==
LOC: D.OPS 08:00 → EDSTATUS 10:00 → D.SDCHOLD 10:00
PROVIDERS: ATTEND Orthopaedic Surgery
DX: M17.12 Unilateral primary osteoarthritis, left knee (principal)

== ENCOUNTER → 2019-07-28 14:07 | Outpatient (CLI) | payer MEDICARE, OTHER ==
[2019-07-20 14:13] VITALS: BMI 23.0
[~2019-07-28 14:07] MED LIST changes: +ELIQUIS2.5 MG PO; +HYDROCODON-ACE1 EAC7 PO
[2019-07-28 15:44] LABS: ALBUMIN 2.3 g/dL (3.4-5.0); ANION GAP 9.1 mmol/L (8-16); BILIRUBIN - TOTAL 0.92 mg/dL (0.2-1.3); CALCIUM 7.3 mg/dL (8.5-10.1); CARBON DIOXIDE 34.6 mmol/L (21.0-32.0); CREATININE - SERUM 1.4 mg/dL (0.6-1.3); POTASSIUM - SERUM 3.7 mmol/L (3.5-5.1); PROTEIN - SERUM 5.5 g/dL (6.4-8.2)
== END | disposition home or self-care (01) ==
LOC: D.LABREF 14:07
PROVIDERS: ATTEND Family Medicine
DX: Z96.60 Presence of unspecified orthopedic joint implant (principal); I25.10 Atherosclerotic heart disease of native coronary artery without angina pectoris; I42.9 Cardiomyopathy, unspecified; I10 Essential (primary) hypertension

== ENCOUNTER 2019-09-17 14:53 | Inpatient (IN) | payer MEDICARE, OTHER ==
[~2019-09-17] VITALS: Ht 182.9 cm; Wt 77.1 kg
--- NOTE | ~2019-09-17 | OP ---
PATIENT NAME: NABILA HENDERSON MEDICAL RECORD: [id number] :[birth year] LOCATION:D.MS [id number] ADMISSION DATE:09/17/19 SURGEON: CRISTIAN FALCON MD DATE OF OPERATION: 09/17/2019 DATE OF SERVICE: 09/17/2019 PREOPERATIVE DIAGNOSIS: Right frontal and right parietal subacute subdural hematoma. POSTOPERATIVE DIAGNOSIS: Right frontal and right parietal subacute subdural hematoma. PROCEDURE: Right frontal and right parietal almita holes for evacuation of subdural hematoma. SURGEON: Cristian Falcon MD DESCRIPTION OF TECHNIQUE: After induction of general endotracheal anesthesia, the patient was positioned supine on the operating table with a right shoulder roll. After sterile prep and drape, the right frontoparietal scalp was infiltrated with 1:100,000 epinephrine with 1% lidocaine. A linear scalp incision was carried out over the right supratemporal line in the right parietal boss. Meticulous hemostasis was maintained within the galea at both almita holes. A self-retaining retractor was placed in the wound at both scalp incisions. A Midas Al drill with a craniotome attachment was used to create a almita hole at both locations. The dura was opened in a cruciate manner with bipolar cautery and #11 blade. There was brisk egress of subacute subdural hematoma fluid from the subdural space. This was irrigated with lukewarm saline irrigant solution until the effluent was crystal clear. The galea was reapproximated with interrupted 2-0 Vicryl suture. The skin was closed with juvenal. A sterile dressing was applied to both wounds. Prior to closure, a subdural drain was placed in the subdural space for drainage and a subdural pressure monitor. The patient was awakened in good condition and taken to recovery. All counts were reported as correct. Estimated blood loss was minimal. TRANSINT:[id number] Voice Confirmation ID: [id number] DOCUMENT ID: [id number] CRISTIAN FALCON MD CC: [id number] DICTATION DATE: 09/26/19734 SHEETER OPERATOR: 09/26/19 0833 DIS IN 09/25/19 [place] [id number] [place] [id number]
[2019-09-17] MEDS ORDERED: PLAVIX75 MG PO (15:10)
[2019-09-17] MEDS ORDERED: AMOXICILLIN500 M1 PO (15:11)
[2019-09-17 16:01] LABS: BASOPHILS 0.3 % (0-2); EOSINOPHILS 1.6 % (0-7); HEMATOCRIT 31.5 % (42.0-54.0); HEMOGLOBIN 10.3 g/dL (13.5-17.5); IMMATURE GRANULOCYTES 0.3 % (0-5); LYMPHOCYTES 12.9 % (15-50); MCH 31.8 pg (26.0-34.0); MCHC 32.7 g/dL (31.0-37.0); MCV 97.2 fL (80.0-100.0); MEAN PLATELET VOLUME 9.4 fL (7.4-10.4); NEUTROPHILS 73.9 % (40-80); RBC 3.24 10x6/uL (4.20-6.10); RDW 13.4 % (11.5-14.5); WBC 9.2 10x3/uL (4.8-10.8)
[2019-09-17 16:02] LABS: PLATELET COUNT 345 10x3/uL (130-400)
[2019-09-17 16:10] VITALS: BP 117/72
[2019-09-17 16:15] LABS: APTT 28.6 SECONDS (22.8-39.4); INR 1.09 (0.85-1.17)
--- NOTE | 2019-09-17 16:37 | NUR ---
URINE SPECIMEN COLLECTED AND SENT TO LAB
--- NOTE | 2019-09-17 16:37 | NUR ---
FLU SWAB COLLECTED AND SENT TO LAB
[2019-09-17 16:38] LABS: CALC OSMOLALITY 275 mosm/kg (275-300); CALCIUM 8.1 mg/dL (8.5-10.1); CARBON DIOXIDE 29.1 mmol/L (21.0-32.0); CHLORIDE - SERUM 98 mmol/L (98-107); CREATININE - SERUM 1.9 mg/dL (0.6-1.3); GLUCOSE 111 mg/dL (74-106); POTASSIUM - SERUM 3.5 mmol/L (3.5-5.1); SODIUM 135 mmol/L (136-145); UREA NITROGEN 27 mg/dL (7-18); eGFR NON AFRICAN AMERICAN 36 mL/min (90-120)
[2019-09-17 16:54] LABS: ALBUMIN 2.5 g/dL (3.4-5.0); ALKALINE PHOSPHATASE 136 U/L (30-120); ALT (SGPT) 46 U/L (10-68); BILIRUBIN - TOTAL 0.56 mg/dL (0.2-1.3); CKMB 0.5 U/L (0.0-3.6); CREATINE KINASE 166 UL (21-232); MAGNESIUM - SERUM 2.2 mg/dL (1.8-2.4); PROTEIN - SERUM 7.1 g/dL (6.4-8.2); THYROID STIMULATING HORMONE 2.68 uIU/mL (0.36-3.74); TROPONIN-I 0.022 ng/mL (0.000-0.060)
[2019-09-17 16:59] LABS: BILIRUBIN NEGATIVE (NEGATIVE); GLUCOSE NEGATIVE (NEGATIVE); KETONE NEGATIVE (NEGATIVE); NITRITE NEGATIVE (NEGATIVE); UROBILINOGEN NORMAL (NORMAL)
[2019-09-17 17:01] LABS: BACTERIA MODERATE /hpf (NEGATIVE); RED CELLS - URINE 0-5 /hpf (0-5)
[2019-09-17 17:05] VITALS: BP 140/67
--- NOTE | 2019-09-17 18:15 | NUR ---
PLATELETS FINISHED AT THIS TIME.
--- NOTE | 2019-09-17 18:29 | NUR ---
DR CHO AT PATIENT BEDSIDE AT THIS TIME.
--- NOTE | 2019-09-17 19:30 | NUR ---
PT ALREADY IN ROOM PRIOR TO SHIFT CHANGE. ALERT AND ORIENTED X4. DAUGHTERS AT BEDSIDE. REPORT PT LIVES AT HOME WITH GRANDSON. SPEECH IS CLEAR. FOLLOWS COMMANDS. NO DEFICITS NOTED. BRUISES NOTED TO BUE. SKIN TEAR TO LT UPPER ARM/ELBOW AREA WITH BANDAID ON. REPORTS HE FELL AT HOME ON WEDNESDAY. [place] AND HAS BILAT HEARING AIDES BUT NOT IN USE AT THIS TIME. USES URINAL. SCDS IN USE BILAT. PROD COUGH WITH YELLOW SPUTUM. O2 @ 2L/NC. SALINE LOCK NOTED TO LT AND RT FOREARM. BED ALARM IN USE FOR PT SAFETY. DENIES PAIN.
--- NOTE | 2019-09-17 22:00 | NUR ---
GRANDSON IN ROOM WITH PT. PT LYING IN BED WITH EYES CLOSED. NO DISTRESS. BED ALARM ON. CL IN REACH.
[2019-09-17 22:43] VITALS: BP 158/70; BMI 23.1
[2019-09-18] VITALS: BP 102/75
--- NOTE | 2019-09-18 02:00 | NUR ---
LYING ON LT SIDE IN BED WITH EYES CLOSED. RESP NONLABORED. O2 @ 2L/NC. FAMILY AT BEDSIDE. CL IN REACH.
[2019-09-18 04:00] VITALS: BP 108/72
--- NOTE | 2019-09-18 04:07 | NUR ---
LYING ON LT SIDE IN BED WITH EYES CLOSED. RESP NONLABORED. HAS RESTED WELL TONIGHT. VISITORS X2 IN ROOM. CL IN REACH.
[2019-09-18 06:47] LABS: BASOPHILS 0 % (0-2); EOSINOPHILS 0 % (0-7); HEMATOCRIT 28.2 % (42.0-54.0); HEMOGLOBIN 9.4 g/dL (13.5-17.5); LYMPHOCYTES 10.5 % (15-50); MCH 31.6 pg (26.0-34.0); MCHC 33.3 g/dL (31.0-37.0); MEAN PLATELET VOLUME 9.4 fL (7.4-10.4); MONOCYTES 2.1 % (2-11); NEUTROPHILS 87.4 % (40-80); PLATELET COUNT 331 10x3/uL (130-400); RBC 2.97 10x6/uL (4.20-6.10); RDW 13.1 % (11.5-14.5)
[2019-09-18 06:59] LABS: MCV 94.9 fL (80.0-100.0); WBC 5.3 10x3/uL (4.8-10.8)
--- NOTE | 2019-09-18 07:15 | NUR ---
ALERT AND ORIENTED. NO C/O PAIN. NO S/S OF ACUTE DISTRESS NOTED. FAMILY AT BEDSIDE. [place]HONE-[place]. WEARS GLASSES, AND HAS BILATERAL HEARING AIDES IN. ON BEDREST AT THIS TIME. ON 2L O2, NC. BILATERAL PERIPHERAL IVS TO WRISTS, SL. SITES PATENT WITHOUT REDNESS OR SWELLING. DIFFIBULATOR TO LEFT CHEST. FSBS DAILY. SCDS ON. DENIES ANY NEEDS AT THIS TIME. CALL LIGHT IN REACH. WILL CONTINUE TO MONITOR.
[2019-09-18 08:55] LABS: CARBON DIOXIDE 27.1 mmol/L (21.0-32.0)
[2019-09-18 08:56] LABS: CREATININE - SERUM 1.4 mg/dL (0.6-1.3); POTASSIUM - SERUM 4.1 mmol/L (3.5-5.1)
[2019-09-18 09:14] VITALS: BP 134/68
--- NOTE | 2019-09-18 12:26 | NUR ---
FAMILY AT BEDSIDE.CALL LIGHT IN REACH
[2019-09-18 12:52] VITALS: BP 126/72
[2019-09-18 12:53] LABS: % SATURATION 16 % (15-55); IRON 26 ug/dl (35-150); TOTAL IRON BIND CAPACITY 160 ug/dl (260-445); UNSAT IRON BIND CAPACITY 134 ug/dl (150-375)
[2019-09-18 14:23] VITALS: Ht 182.9 cm; Wt 77.1 kg
[2019-09-18 17:13] VITALS: BP 105/75
--- NOTE | 2019-09-18 18:32 | NUR ---
ALERT AND ORIENTED. NO C/O PAIN. NO S/S OF ACUTE DISTRESS NOTED. DENIES ANY NEEDS AT THIS TIME. CALL LIGHT IN REACH. WILL CONTINUE TO MONITOR.
--- NOTE | 2019-09-18 19:20 | NUR ---
REPORT RECEIVED, WILL CONTINUE POC. PATIENT IS AAOX4, LYING IN SEMI-FOWLERS POSITION. FAMILY AT BEDSIDE. NO S/S OF DISTRESS OBSERVED, RR EVEN AND UNLABORED ON 2L O2 VIA NC. PIV TO RT AND LT FA, BOTH PATENT, SL, DRSGS C/D/I. PATIENT DENIES NEEDS AT THIS TIME. CL IN REACH, BED LOCKED AND LOWERED. LINDA ALARM ON. WILL CTM.
[2019-09-18 20:00] VITALS: BP 143/68
[2019-09-19] VITALS: BP 125/65
[2019-09-19 04:00] VITALS: BP 150/84
--- NOTE | 2019-09-19 04:38 | NUR ---
I have reviewed this patient and I concur with the Shift Assessment completed by the Licensed Practical Nurse today this shift.
[2019-09-19 06:34] LABS: BASOPHILS 0 % (0-2); EOSINOPHILS 0 % (0-7); HEMATOCRIT 28.4 % (42.0-54.0); HEMOGLOBIN 9.3 g/dL (13.5-17.5); IMMATURE GRANULOCYTES 0.3 % (0-5); LYMPHOCYTES 4.4 % (15-50); MCH 31.1 pg (26.0-34.0); MCHC 32.7 g/dL (31.0-37.0); MONOCYTES 2.5 % (2-11); NEUTROPHILS 92.8 % (40-80); PLATELET COUNT 366 10x3/uL (130-400); RBC 2.99 10x6/uL (4.20-6.10); RDW 13.2 % (11.5-14.5)
[2019-09-19 06:38] LABS: WBC 14.9 10x3/uL (4.8-10.8)
[2019-09-19 07:07] LABS: ANION GAP 10.9 mmol/L (8-16); CALCIUM 7.8 mg/dL (8.5-10.1); CREATININE - SERUM 1.6 mg/dL (0.6-1.3); POTASSIUM - SERUM 3.9 mmol/L (3.5-5.1)
--- NOTE | 2019-09-19 07:15 | NUR ---
ALERT AND ORIENTED, KAW WITH HEARING AIDES. NO C/O PAIN. NO S/S OF ACUTE DISTRESS NOTED. DENIES ANY NEEDS AT THIS TIME. CALL LIGHT IN REACH. WILL CONTINUE TO MONITOR.
[2019-09-19 09:42] VITALS: BP 152/71
[2019-09-19 13:01] VITALS: BP 145/57
[2019-09-19 17:24] VITALS: BP 131/74
[2019-09-19 20:00] VITALS: BP 108/75
--- NOTE | 2019-09-20 00:56 | NUR ---
ALERT AND ORENTED ABLE TO VOICE NEEDS AND WANTS TO STAFF. IV TO LEFT AND RIGHT FA. HE IS POINT LAY IRA WITH AIDES FOR EACH EAR. UP WITH ASSIST. FAMILT AT BEDSIDE.
[2019-09-20 06:47] LABS: BASOPHILS 0 % (0-2); EOSINOPHILS 0 % (0-7); HEMATOCRIT 29.5 % (42.0-54.0); HEMOGLOBIN 9.6 g/dL (13.5-17.5); IMMATURE GRANULOCYTES 0.3 % (0-5); LYMPHOCYTES 6.3 % (15-50); MCH 31.3 pg (26.0-34.0); MCHC 32.5 g/dL (31.0-37.0); MCV 96.1 fL (80.0-100.0); MEAN PLATELET VOLUME 9.6 fL (7.4-10.4); MONOCYTES 3.2 % (2-11); NEUTROPHILS 90.2 % (40-80); PLATELET COUNT 352 10x3/uL (130-400); RBC 3.07 10x6/uL (4.20-6.10); RDW 13.5 % (11.5-14.5); WBC 11.6 10x3/uL (4.8-10.8)
[2019-09-20 07:15] LABS: CALCIUM 8.1 mg/dL (8.5-10.1); CARBON DIOXIDE 31.1 mmol/L (21.0-32.0); CREATININE - SERUM 1.4 mg/dL (0.6-1.3); POTASSIUM - SERUM 4.1 mmol/L (3.5-5.1)
--- NOTE | 2019-09-20 07:15 | NUR ---
ALERT AND ORIENTED. NO C/O PAIN. NO S/S OF ACUTE DISTRESS NOTED. DENIES ANY NEEDS AT THIS TIME. CALL LIGHT IN REACH. WILL CONTINUE TO MONITOR.
[2019-09-20 09:32] VITALS: BP 117/72
[2019-09-20 12:40] VITALS: BP 156/79
--- NOTE | 2019-09-20 13:25 | NUR ---
Rehab Note- Acute Inpatient Rehab prescreen received. The patient has a Ada hole scheduled for tomorrow. Will follow at this time. Thank you for this referral! Kenya Barvo RN Clinical Liaison, [facility] Rehab
[2019-09-20 16:53] VITALS: BP 154/73
--- NOTE | 2019-09-20 18:35 | NUR ---
I have reviewed this patient and I concur with the Shift Assessment completed by the Licensed Practical Nurse today this shift.
--- NOTE | 2019-09-20 18:45 | NUR ---
ALERT AND ORIENTED. NO C/O PAIN. NO S/S OF ACUTE DISTRESS NOTED. DENIES ANY NEEDS AT THIS TIME. CALL LIGHT IN REACH. WILL CONTINUE TO MONITOR.
[2019-09-20 20:00] VITALS: BP 122/71
--- NOTE | 2019-09-20 21:08 | NUR ---
OT NOTE: PT COMPLETED SUPINE TO SIT AT EOB WITH SBA. PT COMPLETED STANDING BALANCE WITH SBA/CGA. PT COMPLETED UE AROM EX AT EOB. PT DAUGHTER PRESENT . [phone] THANK YOU,MERCEDES RIVERA
--- NOTE | 2019-09-21 02:45 | NUR ---
alert plesent with staff daughter at bedside. NPO at midnight for left frontal and parietal almita holes. no s/s of distress no needs
[2019-09-21 04:00] VITALS: BP 135/79
[2019-09-21 04:59] LABS: BASOPHILS 0 % (0-2); EOSINOPHILS 0 % (0-7); HEMATOCRIT 31.9 % (42.0-54.0); HEMOGLOBIN 10.6 g/dL (13.5-17.5); IMMATURE GRANULOCYTES 0.4 % (0-5); LYMPHOCYTES 6.3 % (15-50); MCH 31.6 pg (26.0-34.0); MCHC 33.2 g/dL (31.0-37.0); MCV 95.2 fL (80.0-100.0); MEAN PLATELET VOLUME 9.5 fL (7.4-10.4); MONOCYTES 3.7 % (2-11); NEUTROPHILS 89.6 % (40-80); PLATELET COUNT 395 10x3/uL (130-400); RBC 3.35 10x6/uL (4.20-6.10); RDW 13.2 % (11.5-14.5); WBC 13.7 10x3/uL (4.8-10.8)
[2019-09-21 05:11] LABS: ANION GAP 8.9 mmol/L (8-16); CALCIUM 7.8 mg/dL (8.5-10.1); CARBON DIOXIDE 32.2 mmol/L (21.0-32.0); CREATININE - SERUM 1.4 mg/dL (0.6-1.3); POTASSIUM - SERUM 4.1 mmol/L (3.5-5.1)
--- NOTE | 2019-09-21 06:45 | NUR ---
ALERT AND ORIENTED. TAKEN TO SURGERY THIS AM BY OR STAFF.
--- NOTE | 2019-09-21 07:00 | MORECARE ---
CASE MANAGEMENT DISCHARGE SUMMARY PATIENT: NABILA HENDERSON S UNIT: [id number] ADM DATE: 09/17/19 AGE: 78 : 38 SEX: M ROOM/BED: D.2240 AUTHOR: ANGELICA MOREIRA PHYSICIAN: REFERRING PHYSICIAN: YESENIA LUDWIG MD DATE OF SERVICE: 09/21/19 Discharge Plan Patient Name: NABILA HENDERSON [facility] [facility] 1940 Planned Disposition: Home Anticipated Discharge Date: Discharge Date: Expected LOS: Initial Reviewer: [email or web address] Initial Review Date: 09/20/2019 Generated: 09/21/19 8:00 am Patient Name: NABILA HENDERSON Page [phone] at 0700 All edits/amendments must be made on the electronic document DICTATION DATE: 09/21/19 07 BOBBIN DISKER: PONEC 09/21/19 07 RPT#: [id number] DC DATE: STATUS: ADM IN [facility] [address] [place] [address] END OF REPORT
--- NOTE | 2019-09-21 07:07 | MORECARE ---
CASE MANAGEMENT DISCHARGE SUMMARY PATIENT: NABILA PIERSON UNIT: [id number] ADM DATE: 09/17/19 AGE: 78 : 38 SEX: M ROOM/BED: D.2240 AUTHOR: HARISH,DOC PHYSICIAN: REFERRING PHYSICIAN: YESENIA LUDWIG MD DATE OF SERVICE: 09/21/19 Discharge Plan Patient Name: NABILA PIERSON Facility: [facility]:[place] : 1940 Planned Disposition: Home Anticipated Discharge Date: Discharge Date: Expected LOS: Initial Reviewer: [email or web address] Initial Review Date: 09/20/2019 Generated: 09/21/19 8:06 am Comments DCP- Discharge Planning Updated by [email or web address]: Corazon Leiva on 09/21/19 6:[address] Patient Name: NABILA PIERSON Admission Status: ER Accout number: [id number] Admission Date: 09-17-2019 : 1940 Admission Diagnosis: Attending: YESENIA LUDWIG Current LOS: 4 Anticipated DC Date: Planned Disposition: Home Primary Insurance: MEDICARE A & B Discharge Planning Comments: CM met with patient to complete initial dc planning assessment. His daughter, Hannah, is in the room and verbal permission granted to discuss discharge planning with daughter present. CM educated patient on the CM role and verbal consent given by patient to complete assessment. Patient lives at home with his grand son, Sam; he is independent with his care. At discharge patient plans to return and feels this is a safe discharge. CM discussed availability of home health, rehab services, and medical equipment. Patient denied known discharge needs at this time. States he would like to return to his OP PT at [facility] in [place] as soon as he can. He was doing PT post knee replacement. CM will continue to follow and will assist as needed with dc plans/needs. Group Program Manager: Corazon Leiva DCPIA - Discharge Planning Initial Assessment Updated by [id number]: Corazon Leiva on 09/21/19 7:01 am * Is the patient Alert and Oriented? Yes * How many steps to enter\exit or inside your home? 2w/rails/0 * PCP Dr. Newby * Pharmacy [facility] in [place] * Preadmission Environment Home with Family * ADLs Independent * Equipment Other Shower Chair Walker * Other Equipment Ice Machine * List name and contact numbers for known caregivers / representatives who currently or will assist patient after discharge: Hannah Jones - DTR - [phone] Sam Pierson - Grand son - [phone] * Verbal permission to speak to the caregivers and representatives has been obtained from the patient. Yes * Community resources currently utilized Other * Please name any agencies selected above. OP PT at [facility] in [place] * Additional services required to return to the preadmission environment? No * Can the patient safely return to the preadmission environment? Yes * Has this patient been hospitalized within the prior 30 days at any hospital? No Last DP export: 09/21/19 6:00 a Patient Name: NABILA PIERSON Page [phone] at 0707 All edits/amendments must be made on the electronic document DICTATION DATE: 09/21/19705 NUTRITION THERAPIST: PONCE 09/21/19705 RPT#: [id number] DC DATE: STATUS: ADM IN [facility] [address] [place] [address] END OF REPORT
[2019-09-21 10:10] VITALS: BP 139/80
--- NOTE | 2019-09-21 10:12 | NUR ---
RECEIVED PATIENT FROM RECOVERY. ALERT AND ORIENTED. DRESSING TO CRAINIUM, STOCKING ATTACHED AND ADIA DRAIN WITH BLOODY DRAINAGE. C/O HEADACHE. NO S/S OF ACUTE DISTRESS NOTED. FAMILY AT BEDSIDE. DENIES ANY NEEDS AT THIS TIME. VITALS STABLE. CALL LIGHT IN REACH. WILL CONTINUE TO MONITOR.
[2019-09-21 11:00] VITALS: BP 151/79
--- NOTE | 2019-09-21 13:33 | NUR ---
NUTRITION F/U PT S/P PROCEDURE. AHA DIET RESUMED WITH ~25% INTAKE LUNCH. WILL CONTINUE TO PROVIDE DIET, MONITOR PO INTAKE. RD FOLLOWING
[2019-09-21 13:52] VITALS: BP 125/87
--- NOTE | 2019-09-21 16:20 | NUR ---
I have reviewed this patient and I concur with the Shift Assessment completed by the Licensed Practical Nurse today this shift.
--- NOTE | 2019-09-21 18:41 | NUR ---
ALERT AND ORIENTED. NO C/O PAIN. NO S/S OF ACUTE DISTRESS NOTED. DENIES ANY NEEDS AT THIS TIME. CALL LIGHT IN REACH. WILL CONTINUE TO MONITOR.
--- NOTE | 2019-09-21 19:50 | NUR ---
SITTING UP IN BED PLAYING DOMINOS WITH SON. ALERT AND ORIENTED X4. DENIES PAIN. DRSG NOTED TO HEAD WITH AIDA DRAIN WITH BLOODY DRAINAGE IN BULB WHICH WAS EMPTIED AT THIS TIME PER PT REQUEST. BRUISES NOTED TO BUE. SKIN TEAR NOTED TO LT UPPER ARM WITH BANDAID IN PLACE. O2 @ 2LNC. SALINE LOCK NOTED TO LT FOREARM. NO DISTRESS. SCDS IN USE BILAT. SR ELEVATED X2. CL IN REACH.
--- NOTE | 2019-09-22 02:02 | NUR ---
RESTING QUIETLY WITH EYES CLOSED. RESP EVEN AND NONLABORED. SON AT BEDSIDE. CL IN REACH.
[2019-09-22 04:00] VITALS: BP 158/71
[2019-09-22 05:42] LABS: CALCIUM 7.6 mg/dL (8.5-10.1); CARBON DIOXIDE 32.3 mmol/L (21.0-32.0); CREATININE - SERUM 1.4 mg/dL (0.6-1.3); POTASSIUM - SERUM 4.3 mmol/L (3.5-5.1)
[2019-09-22 06:08] LABS: BASOPHILS 0 % (0-2); EOSINOPHILS 0 % (0-7); HEMATOCRIT 29.8 % (42.0-54.0); HEMOGLOBIN 9.7 g/dL (13.5-17.5); IMMATURE GRANULOCYTES 0.3 % (0-5); LYMPHOCYTES 5.9 % (15-50); MCH 30.9 pg (26.0-34.0); MCHC 32.6 g/dL (31.0-37.0); MCV 94.9 fL (80.0-100.0); MEAN PLATELET VOLUME 9.7 fL (7.4-10.4); MONOCYTES 4.9 % (2-11); NEUTROPHILS 88.9 % (40-80); PLATELET COUNT 375 10x3/uL (130-400); RBC 3.14 10x6/uL (4.20-6.10); RDW 13.3 % (11.5-14.5); WBC 13.2 10x3/uL (4.8-10.8)
--- NOTE | 2019-09-22 06:39 | NUR ---
RESTED WELL TONIGHT. NO PAIN. NO DISTRESS. CL IN REACH.
--- NOTE | 2019-09-22 07:53 | NUR ---
REPORT RECIEVED. WILL CONTINUE WITH POC. PT CURRENTLY LYING SEMI FOWLERS. CALL LIGHT W/I REACH. PT IS AAO. NO S/S OF DISTRESS NOTED. AIDA INTACT. L.FOR PIV SALINE LOCKED. FALL PRECAUTIONS IN PLACE. DRESSING TO SCALP INTACT. PT DENIES ANY NEEDS AT THIS TIME. WILL CTM.
[2019-09-22 08:47] VITALS: BP 156/87
[2019-09-22 12:38] VITALS: BP 156/76
--- NOTE | 2019-09-22 14:19 | NUR ---
I have reviewed this patient and I concur with the Shift Assessment completed by the Licensed Practical Nurse today this shift.
[2019-09-22 17:16] VITALS: BP 156/80
[2019-09-22 20:00] VITALS: BP 164/64
[2019-09-23 04:00] VITALS: BP 150/81
--- NOTE | 2019-09-23 05:21 | NUR ---
I have reviewed this patient and I concur with the Shift Assessment completed by the Licensed Practical Nurse today this shift.
[2019-09-23 06:52] LABS: BASOPHILS 0 % (0-2); EOSINOPHILS 0 % (0-7); HEMATOCRIT 31.1 % (42.0-54.0); HEMOGLOBIN 10.5 g/dL (13.5-17.5); IMMATURE GRANULOCYTES 0.4 % (0-5); LYMPHOCYTES 8.4 % (15-50); MCH 32.1 pg (26.0-34.0); MCHC 33.8 g/dL (31.0-37.0); MCV 95.1 fL (80.0-100.0); MEAN PLATELET VOLUME 9.9 fL (7.4-10.4); MONOCYTES 5.3 % (2-11); NEUTROPHILS 85.9 % (40-80); PLATELET COUNT 368 10x3/uL (130-400); RBC 3.27 10x6/uL (4.20-6.10); RDW 13.2 % (11.5-14.5); WBC 12.3 10x3/uL (4.8-10.8)
[2019-09-23 07:04] LABS: ANION GAP 7.9 mmol/L (8-16); CALCIUM 7.6 mg/dL (8.5-10.1); CARBON DIOXIDE 32.2 mmol/L (21.0-32.0); CREATININE - SERUM 1.2 mg/dL (0.6-1.3); POTASSIUM - SERUM 4.1 mmol/L (3.5-5.1)
--- NOTE | 2019-09-23 07:44 | NUR ---
PT RESTING, RR EVEN AND UNLABORED. NO DISTRESS NOTED. CALL LIGHT WITHIN REACH. BED IN LOWEST POSITON. WILL CONTINUE TO MONITOR.
[2019-09-23 08:33] VITALS: BP 148/85
--- NOTE | 2019-09-23 11:40 | NUR ---
DENIES NEEDS OR PAIN AT THIS TIME. CALL LIGHT WITHIN REACH. BED IN LOWEST POSITION. WILL CONTINUE TO MONITOR. URINAL EMPTIED. 275ML CLEAR, YELLOW URINE
[2019-09-23 12:28] VITALS: BP 145/84
--- NOTE | 2019-09-23 14:12 | NUR ---
HAS BEEN UP TO CHAIR. PATIENT IS WITHOUT NEEDS.FAMILY AT SIDE
--- NOTE | 2019-09-23 14:34 | NUR ---
DAUGHTERS AT BEDSIDE. WANTED PATIENT TO BE AMBULATED. STATED PHYSICAL THERAPY WAS SUPPOSED TO BE WORKING WITH HIM. GOT TEXT CONFIRMATION FROM DR. CHO THAT PATIENT COULD BE UP AD [facility]. SPOKE WITH PHYSICAL THERAPY, STATED THEY HAD SIGNED OFF ON PATIENT AND THAT HE COULD BE UP AD [facility]. PTs DAUGHTER STILL UNCOMFORTABLE WITH WALKIN WINSOME HIS OWN. PT AMBULATED AROUND NURSING STATION WITH STANDBY ASSIST AND STEADY GAIT. LINENS ON BED CHANGED. PT BACK TO ROOM AND SITTING UP IN CHAIR. CALL LIGHT WITHIN REACH. WILL CONTINUE TO MONITOR.
[2019-09-23 16:39] VITALS: BP 138/81
--- NOTE | 2019-09-23 18:47 | NUR ---
ORDERS RECIEVED TO D/C AIDA DRAIN. MINERVA MOON WITH ME AT BEDSIDE. AIDA DRAIN D/C WITH TIP INTACT AND 50MLS SEROSANGUINOUS DRAINAGE. WAS TOLD TO DRESS WITH 2X2. 2X2 SATURATED X4. DRAINAGE DARK RED AND PULSATING. AREA AROUND LOLA SWELLING. CHARGE NURSE AT BEDSIDE. PRESSURE DRESSING PLACED. DR. CANO ON THE FLOOR HAPPENED TO WALK PASSED THE ROOM. LOOKED AT SITE. DR. CANO CALLED PACE AND SPOKE WITH HIM. WAS TOLD BY DR. CANO TO MIX STERILE WATER AND HYDROGEN PEROXIDE AND CLEAN THE AREA AND PLACE STERILE DRESSING WITH TEGADERM. COMPLETE AND REINFORCED WITH FOAM TAPE. LINENS CHANGED. FAMILY AT BEDSIDE. NO LOC CHANGES AT THIS TIME. CALL LIGHT WITHIN REACH. WILL CONTINUE TO MONITOR.
[2019-09-23 19:46] VITALS: BP 151/80
[2019-09-24] VITALS (7 sets, daily range): BP systolic 98–174; BP diastolic 52–90
--- NOTE | 2019-09-24 07:15 | NUR ---
ALERT AND ORIENTED. NO C/O PAIN. NO S/S OF ACUTE DISTRESS NOTED. [place], HAS BILATERAL HEARING AIDES. IV TO LEFT FOREARM, SL. SITE PATENT WITHOUT REDNESS OR SWELLING. DEFIBULATOR TO LEFT CHEST. DENIES ANY NEEDS AT THIS TIME. CALL LIGHT IN REACH. WILL CONTINUE TO MONITOR.
[2019-09-24 15:24] LABS: BASOPHILS 0 % (0-2); EOSINOPHILS 0 % (0-7); HEMATOCRIT 35.5 % (42.0-54.0); HEMOGLOBIN 11.8 g/dL (13.5-17.5); IMMATURE GRANULOCYTES 0.5 % (0-5); LYMPHOCYTES 3.9 % (15-50); MCH 31.8 pg (26.0-34.0); MCHC 33.2 g/dL (31.0-37.0); MCV 95.7 fL (80.0-100.0); MEAN PLATELET VOLUME 9.8 fL (7.4-10.4); MONOCYTES 6.7 % (2-11); NEUTROPHILS 88.9 % (40-80); PLATELET COUNT 408 10x3/uL (130-400); RBC 3.71 10x6/uL (4.20-6.10); RDW 13.4 % (11.5-14.5)
[2019-09-24 15:29] LABS: WBC 15.5 10x3/uL (4.8-10.8)
[2019-09-24 15:44] LABS: ANION GAP 10.8 mmol/L (8-16); CALCIUM 7.7 mg/dL (8.5-10.1); CARBON DIOXIDE 29.4 mmol/L (21.0-32.0); CREATININE - SERUM 1.3 mg/dL (0.6-1.3); POTASSIUM - SERUM 4.2 mmol/L (3.5-5.1)
--- NOTE | 2019-09-24 18:22 | NUR ---
ALERT AND ORIENTED. NO C/O PAIN. NO S/S OF ACUTE DISTRESS NOTED. DENIES ANY NEEDS AT THIS TIME. FAMILY AT BEDSIDE. CALL LIGHT IN REACH. WILL CONTINUE TO MONITOR.
--- NOTE | 2019-09-24 20:00 | NUR ---
RESTING IN BED, DENIES PAIN OR NEEDS AT THIS TIME, FAMILY AT BEDSIDE, SEE SHIFT ASSESSMENT, DRESSIGN TO HEAD C/D/I, CALL LIGHT IN REACH
[2019-09-25] VITALS: BP 171/93
[2019-09-25 04:00] VITALS: BP 135/67
[2019-09-25 05:11] LABS: BASOPHILS 0 % (0-2); EOSINOPHILS 0 % (0-7); HEMATOCRIT 33.5 % (42.0-54.0); IMMATURE GRANULOCYTES 0.4 % (0-5); LYMPHOCYTES 5.9 % (15-50); MCH 31.3 pg (26.0-34.0); MCHC 32.8 g/dL (31.0-37.0); MCV 95.2 fL (80.0-100.0); MEAN PLATELET VOLUME 9.8 fL (7.4-10.4); MONOCYTES 3.7 % (2-11); PLATELET COUNT 362 10x3/uL (130-400); RBC 3.52 10x6/uL (4.20-6.10); RDW 13.6 % (11.5-14.5); WBC 14.5 10x3/uL (4.8-10.8)
[2019-09-25 05:45] LABS: ANION GAP 9.5 mmol/L (8-16); CALCIUM 7.9 mg/dL (8.5-10.1); CARBON DIOXIDE 30.7 mmol/L (21.0-32.0); CREATININE - SERUM 1.1 mg/dL (0.6-1.3); MAGNESIUM - SERUM 2.3 mg/dL (1.8-2.4); POTASSIUM - SERUM 4.2 mmol/L (3.5-5.1)
--- NOTE | 2019-09-25 07:15 | NUR ---
RESTING IN BED WITH EYES CLOSED, RESPIRATIONS EVEN AND UNLABORED. NO S/S OF ACUTE DISTRESS NOTED. DRESSING TO HEAD, C/D/I. POD #4 DUSTY HOLES TO RELIEVE SUBDURAL HEMATOMA. ON 2L O2, NC. IV TO LEFT FOREARM, SL. SITE PATENT WITHOUT REDNESS OR SWELLING. CALL LIGHT IN REACH. FAMILY AT BEDSIDE. WILL CONTINUE TO MONITOR.
[2019-09-25 09:23] VITALS: BP 152/76
[2019-09-25] MEDS ORDERED: MEDROL DOSE PACK4 MG PO (10:34)
[2019-09-25] MEDS ORDERED: LEVOFLOXACIN500 MG PO (10:47)
[2019-09-25] MEDS ORDERED: PROTONIX40 MG PO (10:47)
--- NOTE | 2019-09-25 11:11 | NUR ---
I have reviewed this patient and I concur with the Shift Assessment completed by the Licensed Practical Nurse today this shift.
--- NOTE | 2019-09-25 11:19 | MORECARE ---
CASE MANAGEMENT DISCHARGE SUMMARY PATIENT: NABILA HENDERSON UNIT: [id number] ADM DATE: 09/17/19 AGE: 78 : 38 SEX: M ROOM/BED: D.2238 AUTHOR: HARISH,DOC PHYSICIAN: REFERRING PHYSICIAN: YESENIA LUDWIG MD DATE OF SERVICE: 09/25/19 Discharge Plan Patient Name: NABILA HENDERSON Facility: [facility]:[place] : 1940 Planned Disposition: Home Anticipated Discharge Date: Discharge Date: Expected LOS: Initial Reviewer: [email or web address] Initial Review Date: 09/20/2019 Generated: 09/25/19 12:18 pm Comments DCP- Discharge Planning Updated by [email or web address]: Corazon Leiva on 09/25/19 10:[address] DC order received. [facility] I called [employer] [facility] and spoke with Pily and clinical faxed. Home today with home health. DCP- Discharge Planning Updated by [email or web address]: Corazon Leiva on 09/21/19 6:[address] Patient Name: NABILA HENDERSON Admission Status: ER Accout number: [id number] Admission Date: 09-17-2019 : 1940 Admission Diagnosis: Attending: YESENIA LUDWIG Current LOS: 4 Anticipated DC Date: Planned Disposition: Home Primary Insurance: MEDICARE A & B Discharge Planning Comments: CM met with patient to complete initial dc planning assessment. His daughter, Hannah, is in the room and verbal permission granted to discuss discharge planning with daughter present. CM educated patient on the CM role and verbal consent given by patient to complete assessment. Patient lives at home with his grand son, Sam; he is independent with his care. At discharge patient plans to return and feels this is a safe discharge. CM discussed availability of home health, rehab services, and medical equipment. Patient denied known discharge needs at this time. States he would like to return to his OP PT at [facility] in [place] as soon as he can. He was doing PT post knee replacement. CM will continue to follow and will assist as needed with dc plans/needs. Food And Beverage Analyst: Corazon Leiva DCPIA - Discharge Planning Initial Assessment Updated by [email or web address]: Corazon Leiva on 09/21/19 7:01 am * Is the patient Alert and Oriented? Yes * How many steps to enter\exit or inside your home? 2w/rails/0 * PCP Dr. Newby * Pharmacy [facility] in [place] * Preadmission Environment Home with Family * ADLs Independent * Equipment Other Shower Chair Walker * Other Equipment Ice Machine * List name and contact numbers for known caregivers / representatives who currently or will assist patient after discharge: Hannah Jones - DTR - [phone] Sam Loyd son - [phone] * Verbal permission to speak to the caregivers and representatives has been obtained from the patient. Yes * Community resources currently utilized Other * Please name any agencies selected above. OP PT at [facility] in [place] * Additional services required to return to the preadmission environment? No * Can the patient safely return to the preadmission environment? Yes * Has this patient been hospitalized within the prior 30 days at any hospital? No External Providers External Provider: [facility] Next Contact Date: Service Request Date: Service Type: Resolution: Reviewer: Comments: Coverage Notice Reviewer: [email or web address] Courtney Leiva Notice Issued Date-Time: 09/25/2019 10:59 Notice Type: IM Discharge Notice Notice Delivered To: Patient Relationship to Patient: Self Bulk Pigment Reducer Name: Delivery Method: HAND - Hand Delivered Savannah Days: Prior Verbal Notification: Recipient Understood Notice: Yes Recipient Signature: Yes Med Rec Note Co-signed by Attending: Coverage Notice Comment: IMM delivered, explained, signed, given, copy placed in MR Reviewer: [email or web address] Courtney Leiva Notice Issued Date-Time: 09/25/2019 10:59 Notice Type: Patient Choice Letter Notice Delivered To: Patient Relationship to Patient: Self Bulk Pigment Reducer Name: Delivery Method: HAND - Hand Delivered Savannah Days: Prior Verbal Notification: Recipient Understood Notice: Yes Recipient Signature: Yes Med Rec Note Co-signed by Attending: Coverage Notice Comment: [facility] for [employer] [facility] Last DP export: 09/21/19 6:07 a Patient Name: NABILA HENDERSON Page [phone] at 1119 All edits/amendments must be made on the electronic document DICTATION DATE: 09/25/191117 SCREEN HANDLER: DM 09/25/191117 RPT#: [id number] DC DATE: STATUS: ADM IN [facility] [address] [place] [address] END OF REPORT
[2019-09-25 12:10] VITALS: BP 137/67
--- NOTE | 2019-09-25 12:19 | NUR ---
DISCHARGED PATIENT HOME VIA WHEELCHAIR WITH FAMILY ACCOMPANIED BY STAFF. DISCONTINUED IV, CATHETER TIP INTACT. WENT OVER DISCHARGE INSTRUCTIONS WITH PATIENT AND FAMILY, VERBALIZED UNDERSTANDING. DENIES ANYTHING FURTHER.
--- NOTE | 2019-09-26 08:02 | MORECARE ---
CASE MANAGEMENT DISCHARGE SUMMARY PATIENT: NABILA HENDERSON UNIT: [id number] ADM DATE: 09/17/19 AGE: 78 : 38 SEX: M ROOM/BED: D.2238 AUTHOR: HARISH,DOC PHYSICIAN: REFERRING PHYSICIAN: YESENIA LUDWIG MD DATE OF SERVICE: 09/26/19 Discharge Plan Patient Name: NABILA HENDERSON Facility: [facility]:[place] : 1940 Planned Disposition: Home Anticipated Discharge Date: Discharge Date: 09/25/2019 Expected LOS: 0 Initial Reviewer: [email or web address] Initial Review Date: 09/20/2019 Generated: 09/26/19 9:02 am Comments DCP- Discharge Planning Updated by [email or web address]: Corazon Leiva on 09/25/19 10:[address] DC order received. [facility] I [facility] and spoke with Pily and clinical faxed. Home today with home health. DCP- Discharge Planning Updated by [email or web address]: Corazon Leiva on 09/21/19 6:[address] Patient Name: NABILA HENDERSON Admission Status: ER Accout number: [id number] Admission Date: 09-17-2019 : 1940 Admission Diagnosis: Attending: YESENIA LUDWIG Current LOS: 4 Anticipated DC Date: Planned Disposition: Home Primary Insurance: MEDICARE A & B Discharge Planning Comments: CM met with patient to complete initial dc planning assessment. His daughter, Hannah, is in the room and verbal permission granted to discuss discharge planning with daughter present. CM educated patient on the CM role and verbal consent given by patient to complete assessment. Patient lives at home with his grand son, Sam; he is independent with his care. At discharge patient plans to return and feels this is a safe discharge. CM discussed availability of home health, rehab services, and medical equipment. Patient denied known discharge needs at this time. States he would like to return to his OP PT at [facility] in [place] as soon as he can. He was doing PT post knee replacement. CM will continue to follow and will assist as needed with dc plans/needs. Conservation Or Heritage Architect: Corazon Leiva DCPIA - Discharge Planning Initial Assessment Updated by [email or web address]: Corazon Leiva on 09/21/19 7:01 am * Is the patient Alert and Oriented? Yes * How many steps to enter\exit or inside your home? 2w/rails/0 * PCP Dr. Newby * Pharmacy [facility] in [place] * Preadmission Environment Home with Family * ADLs Independent * Equipment Other Shower Chair Walker * Other Equipment Ice Machine * List name and contact numbers for known caregivers / representatives who currently or will assist patient after discharge: Hannah Jones - DTR - [phone] Sam Loyd son - [phone] * Verbal permission to speak to the caregivers and representatives has been obtained from the patient. Yes * Community resources currently utilized Other * Please name any agencies selected above. OP PT at [facility] in [place] * Additional services required to return to the preadmission environment? No * Can the patient safely return to the preadmission environment? Yes * Has this patient been hospitalized within the prior 30 days at any hospital? No Coverage Notice Reviewer: [email or web address] Courtney Leiva Notice Issued Date-Time: 09/25/2019 10:59 Notice Type: IM Discharge Notice Notice Delivered To: Patient Relationship to Patient: Self Doll Dresser Name: Delivery Method: HAND - Hand Delivered Savannah Days: Prior Verbal Notification: Recipient Understood Notice: Yes Recipient Signature: Yes Med Rec Note Co-signed by Attending: Coverage Notice Comment: IMM delivered, explained, signed, given, copy placed in MR Reviewer: [email or web address] Courtney Leiva Notice Issued Date-Time: 09/25/2019 10:59 Notice Type: Patient Choice Letter Notice Delivered To: Patient Relationship to Patient: Self Doll Dresser Name: Delivery Method: HAND - Hand Delivered Savannah Days: Prior Verbal Notification: Recipient Understood Notice: Yes Recipient Signature: Yes Med Rec Note Co-signed by Attending: Coverage Notice Comment: [facility] for [facility] Last DP export: 09/25/19 10:19 a Patient Name: NABILA HENDERSON Page [phone] at 0802 All edits/amendments must be made on the electronic document DICTATION DATE: 09/26/19 0802 [employer] SALES: PONCE 09/26/19 0802 RPT#: [id number] DC DATE:09/25/19 STATUS: DIS IN [facility] [address] [facility] [place] [place] [address] END OF REPORT
--- NOTE | 2019-09-26 08:11 | MORECARE ---
CASE MANAGEMENT DISCHARGE SUMMARY PATIENT: NABILA HENDERSON UNIT: [id number] ADM DATE: 09/17/19 AGE: 78 : 38 SEX: M ROOM/BED: D.2238 AUTHOR: HARISH,DOC PHYSICIAN: REFERRING PHYSICIAN: YESENIA LUDWIG MD DATE OF SERVICE: 09/26/19 Discharge Plan Patient Name: NABILA HENDERSON Facility: [facility]:[place] : 1940 Planned Disposition: Home Anticipated Discharge Date: Discharge Date: 09/25/2019 Expected LOS: 0 Initial Reviewer: [email or web address] Initial Review Date: 09/20/2019 Generated: 09/26/19 9:10 am Comments DCP- Discharge Planning Updated by [email or web address]: Corazon Leiva on 09/25/19 10:[address] DC order received. [facility] I called [facility] and spoke with Pily and clinical faxed. Home today with home health. DCP- Discharge Planning Updated by [email or web address]: Corazon Leiva on 09/21/19 6:[address] Patient Name: NABILA HENDERSON Admission Status: ER Accout number: [id number] Admission Date: 09-17-2019 : 1940 Admission Diagnosis: Attending: YESENIA LUDWIG Current LOS: 4 Anticipated DC Date: Planned Disposition: Home Primary Insurance: MEDICARE A & B Discharge Planning Comments: CM met with patient to complete initial dc planning assessment. His daughter, Hannah, is in the room and verbal permission granted to discuss discharge planning with daughter present. CM educated patient on the CM role and verbal consent given by patient to complete assessment. Patient lives at home with his grand son, Sam; he is independent with his care. At discharge patient plans to return and feels this is a safe discharge. CM discussed availability of home health, rehab services, and medical equipment. Patient denied known discharge needs at this time. States he would like to return to his OP PT at [facility] in [place] as soon as he can. He was doing PT post knee replacement. CM will continue to follow and will assist as needed with dc plans/needs. Mechanical Design Technician: Corazon Leiva DCPIA - Discharge Planning Initial Assessment Updated by [email or web address]: Corazon Leiva on 09/21/19 7:01 am * Is the patient Alert and Oriented? Yes * How many steps to enter\exit or inside your home? 2w/rails/0 * PCP Dr. Newby * Pharmacy [facility] in [place] * Preadmission Environment Home with Family * ADLs Independent * Equipment Other Shower Chair Walker * Other Equipment Ice Machine * List name and contact numbers for known caregivers / representatives who currently or will assist patient after discharge: Hannah Jones - DTR - [phone] Sam Loyd son - [phone] * Verbal permission to speak to the caregivers and representatives has been obtained from the patient. Yes * Community resources currently utilized Other * Please name any agencies selected above. OP PT at [facility] in [place] * Additional services required to return to the preadmission environment? No * Can the patient safely return to the preadmission environment? Yes * Has this patient been hospitalized within the prior 30 days at any hospital? No Coverage Notice Reviewer: [email or web address] Courtney Leiva Notice Issued Date-Time: 09/25/2019 10:59 Notice Type: IM Discharge Notice Notice Delivered To: Patient Relationship to Patient: Self Cotton Wringer Name: Delivery Method: HAND - Hand Delivered Savannah Days: Prior Verbal Notification: Recipient Understood Notice: Yes Recipient Signature: Yes Med Rec Note Co-signed by Attending: Coverage Notice Comment: IMM delivered, explained, signed, given, copy placed in MR Reviewer: [email or web address] Courtney Leiva Notice Issued Date-Time: 09/25/2019 10:59 Notice Type: Patient Choice Letter Notice Delivered To: Patient Relationship to Patient: Self Cotton Wringer Name: Delivery Method: HAND - Hand Delivered Savannah Days: Prior Verbal Notification: Recipient Understood Notice: Yes Recipient Signature: Yes Med Rec Note Co-signed by Attending: Coverage Notice Comment: [facility] for [facility] Last DP export: 09/25/19 10:19 a Patient Name: NABILA HENDERSON Page [phone] at 0811 All edits/amendments must be made on the electronic document DICTATION DATE: 09/26/19809 CURTAIN SUPERVISOR: PONCE 09/26/19809 RPT#: [id number] DC DATE:09/25/19 STATUS: DIS IN [facility] [address] [facility] [place] [address] END OF REPORT
== END 2019-09-25 12:22 | disposition home health service (06) | DRG 25 ==
LOC: D.ER 14:53 → D.MS 17:43 → D.SDCHOLD 09-22 15:35 → D.MS 09-24 21:41
PROVIDERS: Emergency Medicine; Neurological Surgery; ADMIT Internal Medicine Nephrology; ATTEND Internal Medicine Nephrology
PROC: 00940ZZ Drainage of Intracranial Subdural Space, Open Approach (ICD-10-PCS; principal; 2019-09-21 07:30)
DX: I62.01 Nontraumatic acute subdural hemorrhage (principal); G93.5 Compression of brain; N39.0 Urinary tract infection, site not specified; I13.0 Hypertensive heart and chronic kidney disease with heart failure and stage 1 through stage 4 chronic kidney disease, or unspecified chronic kidney disease; I50.22 Chronic systolic (congestive) heart failure; N17.9 Acute kidney failure, unspecified; D64.9 Anemia, unspecified; N18.9 Chronic kidney disease, unspecified; J44.9 Chronic obstructive pulmonary disease, unspecified; I25.2 Old myocardial infarction; I25.10 Atherosclerotic heart disease of native coronary artery without angina pectoris; Z95.810 Presence of automatic (implantable) cardiac defibrillator

== ENCOUNTER → 2020-11-11 13:20 | Day surgery (SDC) | payer MEDICARE, OTHER ==
[2019-09-18 14:23] VITALS: BMI 23.0
--- NOTE | 2020-11-08 10:58 | NUR ---
CONFIRMED PT APPT FOR 11/11/20 ALLX: NKDR ARRIVAL TIME: 1300
--- NOTE | ~2020-11-11 | HEMODYNAMI ---
PATIENT:NABILA HENDERSON MEDICAL RECORD: [id number] : [birth year] [id number] ADMISSION DATE: 11/11/20 Generatedon:114:53 Patient name: NABILA HENDERSON Patient #: [id number] SSN: [id number] : 1940 Date of study: 11/11/2020 Page: Of Hemodynamic Procedure Report Patient Data Patient Demographics Procedure consent was obtained First Name: NABILA Gender: Male Last Name: BEATRIZ : 1940 Middle Initial: S Age: 79 year(s) Patient #: [id number] Race: SSN: [id number] Additional ID: [id number] Contact details Address: [address] State: [place] City: [place] Zip code: [address] Admission Admission Data Admission Date: 11/11/2020 Admission Time: 13:20 Procedure Procedure Types Cath Procedure Peripheral Cath Diagnostic Procedure Miscellaneous Aspiration/Injection (Joint) Procedure Description Procedure Date Procedure Date: 11/11/2020 Procedure Start Time: 14:50 Procedure End Time: 14:52 Procedure Staff Name Function Les Rousseau MD Performing Physician Leonardo Gray RT Monitor SAMIRA VELÁSQUEZ RT Monitor Procedure Data Cath Procedure Fluoroscopy Diagnostic fluoroscopy Total fluoroscopy Time: 0.4 time: 0.4 min min Contrast Material Contrast Material Type Amount (ml) Isovue 200 5 Hemodynamics Rest Pre Cath Intra NCS Post Cath Procedure Log Time Note 14:30:45 Leonardo Gray RT (R) (CV) sent for patient. Start room use. 14:30:59 Patient received from Outpatients to IR Alert and oriented. Tansferred to table in Supine position. 14:31:03 Signed procedure consent form obtained from patient. 14:31:05 Correct patient and procedure confirmed by team. 14:31:07 Full Disclosure recording started 14:31:08 - 14:31:10 Pre-op teaching completed and patient verbalized understanding. 14:31:10 Pre-procedure instructions explained to patient. 14:31:30 NKDA 14:31:38 Is patient on blood thinner?No 14:32:13 Right Hip was prepped with betadine and draped in sterile fashion. 14:32:36 SAFE-T PLUS MYELOGRAM TRAY opened to sterile field. 14:44:47 --------ALL STOP TIME OUT------ 14:44:47 Final Timeout: patient, procedure, and site verified with staff and physician. All members of the team are in agreement. 14:45:06 Right groin site verified by team. 14:45:12 Procedure started. 14:50:05 Local anesthetic to Right Hip with Lidocaine 1% by Leonardo Gray RT (R) (CV).INITIAL ACCESS ONLY 14:51:15 Procedure ended.(Physican Out) 14:51:58 Fluoroscopy time 00.40 minutes. 14:52:01 Dose Area Product 3 mGy/cm. 14:52:04 Contrast amount:Isovue 200 5ml. 14:52:19 Post-op/insertion site Right Hip dressed using a Bandaid. 14:52:34 Procedure and supply charges have been captured, reviewed, submitted an d are correct. 14:52:37 Procedure ended. 14:52:37 Full Disclosure recording stopped Device Usage Item Name Manufacture Quantity Catalog Hospital Part Current Minimal Lot# / Number Charge Number Stock Stock Serial# Code SAFE-T [employer]usion 1 [id number] PLUS MYELOGRAM TRAY Signature Audit [place] Stage Time Signature Unsigned Intra-Procedure 11/11/2020 SAMIRA VELÁSQUEZ RT 2:53:27 PM (R) [facility] [address] [place] [address]
[~2020-11-11 13:20] MED LIST changes: +AMOXICILLIN500 M1 PO; +LEVOFLOXACIN500 MG PO; +MEDROL DOSE PACK4 MG PO; +PROTONIX40 MG PO
== END | disposition home or self-care (01) ==
LOC: D.RAD 13:20
PROVIDERS: ATTEND Orthopaedic Surgery
DX: M16.11 Unilateral primary osteoarthritis, right hip (principal)